=== PATIENT | male | born 1950 | race Caucasian/White ===

== ENCOUNTER 2019-09-26 11:29 | Inpatient (IN) | payer MEDICARE ==
[~2019-09-26] VITALS: Ht 180.3 cm; Wt 78.6 kg
--- NOTE | ~2019-09-26 | CON ---
[place], [place] REPORT OF CONSULTATION NAME: Hira RYAN UNIT #: [id number] ROOM: 531 DOCTOR: BRAD YU MD BIRTHDATE: [birth year] DOS: 09/27/2019 REASON FOR CONSULTATION: Elevated troponin. HISTORY OF PRESENT ILLNESS: The patient is a 69-year-old gentleman with history of coronary artery disease, recent bypass surgery, peripheral vascular disease, who was brought to the Emergency Room after a fall. Apparently, the patient fell at home, but denies any loss of consciousness, but he was on the floor about 3 days without any food. The patient has been calling around the basement, finally was brought to the Emergency Room and a Cardiology consult for elevated cardiac troponin. His admitting diagnosis is rhabdomyolysis. He had a bypass in February 2019 and compliant with his medications. Denies any chest pain, shortness of breath. No PND, no orthopnea, no palpitations, no fever and chills. No neurologic symptoms. No musculoskeletal symptoms except the patient has some scratches and wound in the legs from crawling. REVIEW OF SYSTEMS: Review of 10 systems negative except as described above. PAST MEDICAL HISTORY: 1. Coronary artery disease, status post bypass surgery. 2. Peripheral vascular disease. 3. Hypertension. 4. Diabetes type 2. PAST SURGICAL HISTORY: History of bypass surgery in February 2019. SOCIAL HISTORY: The patient quit smoking in February 2019. He does not use illicit drugs, does not drink. FAMILY HISTORY: Father , age unknown. Mother , age unknown. ALLERGIES: Reviewed. HOME MEDICATIONS: Reviewed. PHYSICAL EXAMINATION: VITAL SIGNS: Blood pressure 138/66, pulse 84, respiratory rate of 16, weight 78.5 kg, BMI 24. GENERAL: Alert, comfortable, in no acute distress. NECK: Supple, no distended neck veins, no carotid bruit. CHEST: Symmetrical, nontender. LUNGS: Clear to auscultation bilaterally. HEART: Regular rhythm, no S3, no palpable thrills. ABDOMEN: Nontender. Bowel sounds normal. EXTREMITIES: Showed no edema. Distal pulses palpable. The patient has abrasions over the legs as well as at the tip of the toes. NEUROLOGIC: Alert with no focal neurologic deficit. PSYCHIATRIC: Alert with good mood and affect. REVIEW OF THE DIAGNOSTIC TESTS: EKG shows sinus rhythm, left atrial [facility] [place], [place] REPORT OF CONSULTATION NAME: Hira RYAN UNIT #: [id number] ROOM: 531 DOCTOR: AIMEE SAUCEDO,BRAD BIRTHDATE: [birth year] enlargement, no acute ST-T changes. CBC, chemistry reviewed. Hemoglobin 8.7, potassium 3.7, BUN 77, creatinine 1.84. CPK was 3539. Troponins are 0.094, 0.082, 0.064, trending down. IMPRESSION: 1. Borderline elevation of troponin due to rhabdomyolysis. 2. Significant elevation of CPK due to rhabdomyolysis. 3. Acute renal failure. 4. Coronary artery disease, status post recent bypass in February 2019. 5. Hypertension. 6. Peripheral vascular disease. 7. Anemia. 8. Wounds of the legs. RECOMMENDATIONS: The patient denies any chest pain. His borderline elevation of troponin is likely from his rhabdomyolysis. Continue his current cardiac medications including Plavix and Coreg. Resume his Lipitor when his CPK is in the normal range. We will resume his lisinopril once his kidney functions are stable. No family at bedside at the time of examination. Compliance with medication discussed. Cardiology will see as needed during the weekend. No further cardiac testing at this time. BRAD YU MD CM:CONSTR:REPORT OF CONSULTATION 1349 09/28/19 9249 interface
--- NOTE | ~2019-09-26 | PR ---
[place], [place] PROGRESS NOTE NAME: Hira RYAN UNIT #: [id number] ROOM: 531 DOCTOR: CURT SAUCEDO,NOEMI He BIRTHDATE: [birth year] DOS: 09/29/2019 NEPHROLOGY FOLLOWUP NOTE SUBJECTIVE: The patient was seen and examined. He is awake and alert. He is on room air. He states he feels a little better every day. Denies any major complaints to me. PHYSICAL EXAMINATION: VITAL SIGNS: Temperature 98.3, pulse 79, respiratory rate 18, blood pressure 143/59. HEENT: Shows no JVD. LUNGS: Diminished breath sounds. No wheeze. HEART: S1, S2. No rub. ABDOMEN: Soft, nontender. EXTREMITIES: Showed trace edema. LABORATORY DATA: Hemoglobin 8.3, white count 5.2, platelets 137. Sodium is 137, potassium 4.1, CO2 of 27, BUN 62, creatinine 1.27, glucose 189, calcium 8.0, magnesium 2.3, albumin 2.2. ASSESSMENT AND PLAN: 1. Acute kidney injury. This appears to be improving. Suspect likely related to prerenal factors, possible acute tubular necrosis. BUN remains high. Creatinine is stable. Replace electrolytes as needed. Fluids seemed to have been stopped. 2. Rhabdomyolysis. Overall, CK levels have improved. Would consider checking a CK level again. 3. Diabetes mellitus, on insulin. Continue to monitor. 4. Anemia. Continue to monitor. Transfuse as needed. NOEMI ELIAS MD CM:PNTRANS [id number] NOEMI ELIAS MD 09/29/19 2007 interface
--- NOTE | ~2019-09-26 | CON ---
[place], [place] REPORT OF CONSULTATION NAME: Hira RYAN UNIT #: [id number] ROOM: 531 DOCTOR: KEYLA PHD AMIRA BIRTHDATE: [birth year] DOS: 10/03/2019 HISTORY OF PRESENT ILLNESS: The patient is a 69-year-old male referred by the hospitalist for Behavioral Health evaluation. At the present time, the patient is on the 5th floor at [facility]. He initially presented to the ED with leg pain. He lives alone and has a friend, who cares for him as well as a home health nurse. Three days prior to his admission on the , he lost his balance and fell. He was not able to get up off the floor and was down for 3 days. His partner of 22 years 3 years ago. He also lost his mom that same year, which he states is when his depression started. He worked for [employer]. He denied alcohol and illegal drug use. He quit smoking tobacco in February of this year after his heart attack. PAST MEDICAL HISTORY: Coronary artery disease, type 2 diabetes, peripheral artery disease, stenosis of lower extremity artery. MEDICATIONS: Lantus, torsemide, Zofran, Humalog, vitamin D, Zoloft, Plavix, Lovenox, Protonix, Coreg, Silvadene, Percocet, Roxicodone. The patient was sitting comfortably, in no apparent distress. He was awake, alert and oriented to person, place and generally to time. He can name the president. Mood was depressed and affect was restricted in range. He states that he feels purposeless in life after his partner . He states that if he never woke up, "he would be happy," however, he firmly and convincingly denied intent to kill himself. He states that he is "to check-in" to end his life. He was able to contract for safety. He states that he does have firearms at home and these should be removed prior to him returning home. He states that if he were to harm himself he would overdose on his medications. Other stressors include recent health issues and adjustment to disability. He is motivated for treatment and is hopeful that his friend will move in with him when he eventually returns home. His plan is to get a [facility] to work on rehabilitation. Discussed inpatient psychiatric treatment with the patient. He reiterated that he is not intending to harm himself and is not at risk for suicide. Speech and language were within normal limits conversationally. Thought process is linear and goal directed. There is no evidence of hallucinations or delusions. DIAGNOSIS: Major depressive disorder, recurrent, severe. PLAN: The patient experiences passive suicidal ideation and at times feels like he wants to . However, he firmly and convincingly denied intention to harm himself. He was able to contract for safety. He declined inpatient psychiatric treatment, but is open to outpatient treatment. He does not appear to be in imminent risk to himself, his firearm should be removed from his home prior to him returning, he would benefit from safety planning as well. He will be discharged to [facility]. Thank you very much for this consult. [place], [place] REPORT OF CONSULTATION NAME: Hira RYAN UNIT #: [id number] ROOM: 531 DOCTOR: KEYLA, PHD AMIRA BIRTHDATE: [birth year] Pita Marrero, PhD CM:CONSTR:REPORT OF CONSULTATION 1701 10/04/19 0427 interface
--- NOTE | ~2019-09-26 | PR ---
[place], [place] PROGRESS NOTE [id number] UNIT #: [id number] ROOM: 531 DOCTOR: WINSOME DUNLAP DO BIRTHDATE: [birth year] DOS: 09/30/2019 RENAL PROGRESS NOTE SUBJECTIVE: The patient offers no complaints today. He states he is feeling well. Only concern is that he has retaining fluid. He denies orthopnea, PND, dyspnea, chest pain or palpitations. States he is voiding well, eating well. PHYSICAL EXAMINATION: VITAL SIGNS: Blood pressure 120/54, pulse 73, respiratory rate 20, temperature 97 degrees Fahrenheit. GENERAL APPEARANCE: A well-appearing male, awake, alert, oriented x 3, in no apparent distress. HEENT: There is no JVD appreciated. LUNGS: Clear to auscultation and percussion. CARDIOVASCULAR: Regular without S3 or rub appreciated. ABDOMEN: Soft with positive bowel sounds x 4. EXTREMITIES: No clubbing, cyanosis. He has +2 pretibial and pedal edema noted. He also has trace presacral edema noted. LABORATORY DATA: Today, WBC is 5.0, hemoglobin 8.3, hematocrit 26.5, platelets 239,000. Sodium is 134, potassium 4.4, chloride is 102, CO2 of 28, BUN of 57, creatinine 1.37, glucose is 295, calcium is 8.1, albumin of 2.1, corrected calcium is 9.6, total protein is 5.9. ASSESSMENT AND PLAN: 1. Acute kidney injury, baseline renal function is unclear. His renal function is improved from admission. Overall stable past 48 hours, slightly increased today. Again, baseline is unclear. Electrolytes are satisfactory. He appears to be volume overloaded. Intake and output yesterday suggest positive balance. Unclear if full output was recorded; however, he apparently is on a diuretic at home as medication reconciliation suggests torsemide 10 mg b.i.d., but he reports only taking a medication 3 times weekly and he is unsure what the name was. 2. Rhabdomyolysis. CK levels have normalized, volume 188 noted today. He is off IV fluids. 3. Anemia. Hemoglobin and hematocrit are decreased but stable. 4. Hypertension. Blood pressure is under satisfactory control. RECOMMENDATIONS: Continue to follow intake and output as well as renal function and electrolytes. I would suggest resuming his outpatient dose of diuretics, but these do need to be further clarified. [place], [place] PROGRESS NOTE NAME: Hira RYAN UNIT #: [id number] ROOM: 531 DOCTOR: WINSOME DUNLAP DO BIRTHDATE: [birth year] WINSOME DUNLAP DO CM:ZOILA 3 [id number] WINSOME DUNLAP DO 09/30/19 2146 interface
--- NOTE | ~2019-09-26 | PR ---
[place], [place] PROGRESS NOTE NAME: Hira RYAN UNIT #: [id number] ROOM: 531 DOCTOR: CURT SAUCEDO,NOEMI He BIRTHDATE: [birth year] DOS: 09/28/2019 NEPHROLOGY FOLLOWUP NOTE SUBJECTIVE: The patient was seen and examined. He is awake and alert. He states he still feels sore, but does feel better. He denies fevers, chills or night sweats. Denies shortness of breath. He was on room air. PHYSICAL EXAMINATION: VITAL SIGNS: Temperature afebrile, pulse 75, respiratory rate 20, blood pressure 122/53. HEENT: Shows no JVD. LUNGS: Clear. HEART: S1, S2. No rub. ABDOMEN: Soft, nontender. EXTREMITIES: Wrapped with trace edema. SKIN: Showed no rash. LABORATORY DATA: Glucose 188, BUN 67, creatinine 1.25, sodium 135, potassium 4.2, CO2 of 25, magnesium 2.2, albumin 2.1. ASSESSMENT AND PLAN: 1. Acute kidney injury. This has been improving. Suspect prerenal factors, possible acute tubular necrosis. BUN and creatinine are improving. Replace electrolytes as needed. Fluids to continue for now. 2. Rhabdomyolysis. CK levels have improved. He is on a bicarbonate infusion. Recheck CK level tomorrow. I think at this point, Bicarbonate can be stopped and he can be placed on normal saline. 3. Diabetes mellitus, on insulin. 4. Anemia. The patient's hemoglobin is 8.7. Transfuse as needed. NOEMI ELIAS MD CM:PNTRANS [id number] NOEMI ELIAS MD 09/29/19 0507 interface
--- NOTE | ~2019-09-26 | EKG ---
[place], [place] ELECTROCARDIOGRAM REPORT NAME: Hira RYAN UNIT #: [id number] ROOM: 531 DOCTOR: KT DRAFT REPORT BIRTHDATE: [birth year] [facility] Test Date: 2019-09-26 Test Time: 16:26:47 Pat Name: Hira RYAN Department: Room: 531 1 Gender: M Classifications Officer Cc/Cm: : 1950 Requested By: JAYDEN AMEZCUA Order Number: [id number] Reading MD: Vaishnavi Constantino Measurements Intervals [place] Rate: 89 P: 45 VA: 128 QRS: 21 QRSD: 95 T: 80 QT: 415 QTc: 505 Interpretive Statements Sinus rhythm Left atrial enlargement Prolonged QT interval Electronically Signed On 09-27-2019 7:42:37 PST by Vaishnavi Constantino CM:EKGRPT:ELECTROCARDIOGRAM REPORT 1626 0742 AJYDEN MERAZ DRAFT REPORT JAYDEN AMEZCUA
[2019-09-26 11:43] VITALS: BP 133/58
[2019-09-26 11:55] LABS: BASO % 0.3 % (0.0-1.0); EOS % 0.1 % (1.0-4.0); HEMATOCRIT 29.8 % (42.0-52.0); HEMOGLOBIN 9.5 g/dl (14.0-18.0); LYMPH # 0.6 10*3/uL (1.3-4.4); LYMPH % 6.7 % (27.0-41.0); MEAN CORPUSCULAR HGB 28.4 pg (27.0-31.0); MEAN CORPUSCULAR HGB CONC 31.9 g/dl (33.0-37.0); MEAN PLATELET VOLUME 10.5 fl (9.6-12.3); NEUT # 7.7 10*3/uL (2.3-7.9); NEUT % 81.3 % (47.0-73.0); PLATELET COUNT AUTOMATED 162 10*3/uL (130-400); RED BLOOD COUNT 3.35 10*6/uL (4.50-5.90); RED CELL DISTRI WIDTH 15.9 % (0-14.5); WHITE BLOOD COUNT 9.5 10*3/uL (4.8-10.8)
[2019-09-26 12:05] LABS: ACT PARTIAL THROMBO TIME 28.2 SECONDS (20.0-32.1)
--- NOTE | 2019-09-26 12:07 | NUR ---
PT HAS A HOME HEALTH NURSE WHO WENT TO SEE THE PT SOMETIME WITHIN THE PAST X3 DAYS. HOME NURSE WAS UNABLE TO SEE THE PT AND INSTEAD LEFT A NOTE THAT READ "I WAS HERE YELLED FOR YOU DOWN THE STAIRS TOWARD BASEMENT YOUR DOG WAS OUT AND I SEEN YOUR WALKER BUT YOU DIDN'T ANSWER- I ALSO CALLED AND LEFT A MESSAGE. I GUESS I'LL SEE YOU TOMORROW -[place]."
[2019-09-26 12:13] LABS: ALBUMIN 2.5 gm/dl (3.1-4.5); CREATININE 1.56 mg/dL (0.70-1.30); POTASSIUM 4.4 mmol/L (3.5-5.1); TOTAL PROTEIN 6.2 gm/dL (6.4-8.2)
[2019-09-26 12:39] LABS: TROPONIN I 0.091 ng/ml (<0.045)
--- NOTE | 2019-09-26 13:06 | NUR ---
NOTIFIE D DR AMEZCUA OF CRITICAL TROPONIN CALLED TO ME BY LAB OF 0.082.TROPONIN TRENDING DOWN.
--- NOTE | 2019-09-26 14:00 | NUR ---
PT RESTING IN BED EATING.
[2019-09-26 14:30] VITALS: BP 122/59
[2019-09-26] MEDS ORDERED: TORSEMIDE10 MG PO (14:48)
[2019-09-26] MEDS ORDERED: CLOPIDOGREL75 MG PO (14:48)
[2019-09-26] MEDS ORDERED: ALPRAZOLAM0.5 M3 PO (14:49)
[2019-09-26] MEDS ORDERED: LISINOPRIL10 M1 PO (14:50)
[2019-09-26] MEDS ORDERED: PERCOCET 10-321 EACH PO (14:50)
[2019-09-26] MEDS ORDERED: CARVEDILOL3.125 MG PO (14:50)
[2019-09-26] MEDS ORDERED: PANTOPRAZOLE SO40 MG PO (14:58)
[2019-09-26] MEDS ORDERED: ATORVASTATIN CA80 M1 PO (14:59)
[2019-09-26] MEDS ORDERED: SERTRALINE HYDR50 MG PO (14:59)
--- NOTE | 2019-09-26 15:00 | NUR ---
HOME MEDS RECONCILED WITH [facility] PHARMACIST IN [place] PRIOR TO PT ARRIVAL TO FLOOR.
[2019-09-26 15:10] VITALS: BP 106/55
--- NOTE | 2019-09-26 15:10 | NUR ---
A 69, admitted to 5E, under the services of SIMRAN Hdez DO with a diagnosis of RHABDOMYLOSIS,HYPERNATREMIA,AND TRANSAMINITIS. Chief complaint is SCATTERED MULTIPLE WOUNDS FROM FALL 3 DAYS AGO, UNOTICED. PT WAS ON FLOOR IN BASEMENT CRAWLING, UNABLE TO GET UP OR CALL FOR HELP. Patient arrived via bed from ER. Monitor applied. Initial assessment completed. Vital signs taken and recorded. SIMRAN HDEZ DO notified of admission to the unit. Orders received. See assessment for past medical history, medications and allergies. Patient and/or family oriented to unit. [facility] visitation policy reviewed. Clothing/patient valuable form completed. ROSSI OLMOS
--- NOTE | 2019-09-26 15:13 | NUR ---
DR OWENS IN TO SEE PT FOR HEEL WOUND FOR PODIATRY. ORDERS RECIEVED.
--- NOTE | 2019-09-26 15:15 | NUR ---
MEASUREMENTS TO 14 WOUNDS COMPLETED PER POLICY, SEE WOUND ASSESSMENT SCREEN.
--- NOTE | 2019-09-26 15:20 | NUR ---
PT TRANSPORTED VIA BED TO US FOR VENOUS /ARTERIAL ULTRASOUND OF BLE.
--- NOTE | 2019-09-26 15:53 | NUR ---
NOTIFIED [facility] OF NEW CONSULT FOR RHABDO AND ELEVATED TROPONINS.
--- NOTE | 2019-09-26 15:59 | NUR ---
DR ALEXANDER'S OFFICE NOTIFIED OF NEW CONSULT FOR RHABDOMYLOSIS.
[2019-09-26 16:00] VITALS: BP 106/55
--- NOTE | 2019-09-26 17:18 | NUR ---
NOTIFIED DR AMEZCUA OF CRITICAL TROPONIN OF 0.064. NO NEW ORDERS.
--- NOTE | 2019-09-26 17:20 | NUR ---
ORDERS RECIEVED FROM DR ALEXANDER.
[2019-09-26 19:15] LABS: CREATININE 1.83 mg/dL (0.70-1.30); POTASSIUM 4.1 mmol/L (3.5-5.1)
[2019-09-26 19:24] LABS: BILIRUBIN 1+ (NEGATIVE); BLOOD 3+ (NEGATIVE); CLARITY SL CLOUDY (CLEAR); COLOR YELLOW (YELLOW); GLUCOSE NEGATIVE (NEGATIVE); KETONE TRACE (NEGATIVE); LEUKO ESTERASE NEGATIVE (NEGATIVE); NITRITE NEGATIVE (NEGATIVE); PH 5.5 (5.0-9.0); SPECIFIC GRAVITY >= 1.030 (1.005-1.030); UROBILINOGEN 0.2 E.U./dl (0.2-1.0)
[2019-09-26 19:30] LABS: EPITHELIAL CELLS 0-2; WBC 0-2 wbc/hpf (0-5); YEAST 1+
--- NOTE | 2019-09-26 19:30 | NUR ---
BEDSIDE REPORT RECEIVED ON PT. PT ALERT ORIENTED, LYINIG IN BED AT THIS TIME. RESPIRATIONS EASY AND UNLABORED ON ROOM AIR. PT DENIES NEEDING ANYTHING AT THIS TIME. SAFETY MEASURES IN PLACE, CALL LIGHT IN REACH.
[2019-09-26 20:00] VITALS: BP 106/52
--- NOTE | 2019-09-26 20:00 | NUR ---
PT SLEEPING IN BED, RESPIRATIONS EASY AND UNLABORED. CALL LIGHT IN REACH.
--- NOTE | 2019-09-26 20:23 | NUR ---
PT HOME MEDICATIONS GIVEN TO TELECINE OPERATOR TO TAKE DOWN TO PHARMACY PER POLICY.
[2019-09-26 21:38] VITALS: BP 112/64
--- NOTE | 2019-09-26 23:30 | NUR ---
PT GIVEN NORCO PER PRN MEDICATIONS ON EMAR FOR C/O GENERALIZED MUSCLE ACHES. WILL MONITOR FOR EFFECTIVENESS. PT LYING IN BED. HOB ELEVATED. RESPIRATIONS EASY AND UNLABORED ON ROOM AIR. CALL LIGHT IN REACH.
[2019-09-27] VITALS: BP 113/50
--- NOTE | 2019-09-27 00:30 | NUR ---
NICOLAS EFFECTIVE PER PT.
--- NOTE | 2019-09-27 04:40 | NUR ---
PT GIVEN NORCO AT THIS TIME FOR GENERALIZED MUSCLE ACHES/PAINS. WILL MONITOR FOR EFFECTIVENESS. PT AWAKE, ALERT, ORIENTED AT THIS TIME. PT DENIES SHORTNESS OF BREATH. IV SITE TO RIGHT ARM PATENT AND IN TACT. FLUSHING WITH EASE. WILL MONITOR FOR EFFECTIVENESS OF PAIN MEDICATION. CALL LIGHT IN REACH.
--- NOTE | 2019-09-27 05:40 | NUR ---
NORCO EFFECTIVE AT THIS TIME.
[2019-09-27 05:59] LABS: BASO % 0.3 % (0.0-1.0); EOS # 0.2 10*3/uL (0.0-0.4); EOS % 2.7 % (1.0-4.0); HEMATOCRIT 27.4 % (42.0-52.0); HEMOGLOBIN 8.7 g/dl (14.0-18.0); LYMPH # 0.6 10*3/uL (1.3-4.4); MEAN CORPUSCULAR HGB 27.6 pg (27.0-31.0); MEAN CORPUSCULAR HGB CONC 31.8 g/dl (33.0-37.0); MEAN PLATELET VOLUME 11.7 fl (9.6-12.3); MONO # 0.8 10*3/uL (0.1-1.0); MONO % 11.7 % (3.0-9.0); NEUT # 5.5 10*3/uL (2.3-7.9); NEUT % 76.2 % (47.0-73.0); PLATELET COUNT AUTOMATED 152 10*3/uL (130-400); RED BLOOD COUNT 3.15 10*6/uL (4.50-5.90); RED CELL DISTRI WIDTH 15.7 % (0-14.5); WHITE BLOOD COUNT 7.2 10*3/uL (4.8-10.8)
[2019-09-27 06:18] LABS: ALBUMIN 2.1 gm/dl (3.1-4.5); CREATININE 1.84 mg/dL (0.70-1.30); PHOSPHOROUS 4.1 mg/dL (2.5-4.9); POTASSIUM 3.8 mmol/L (3.5-5.1); TOTAL PROTEIN 5.6 gm/dL (6.4-8.2)
[2019-09-27 06:30] LABS: THYROID STIM HORMONE (HS) 1.34 uIU/ml (0.358-4.75)
[2019-09-27 06:51] LABS: INTERNATIONAL NORM RATIO 0.9 (2.0-3.5)
--- NOTE | 2019-09-27 07:18 | NUR ---
Hira RYAN [id number] Please refer to the physician's history and physical for past medical history, comorbid conditions, and allergies. Diagnosis: TRANSAMINITIS HYPERNATREMIA RHABDOMYOLYSIS Onur Score: 19,LOW OR NO RISK WOUND DESCRIPTIONS: Wound Number: 1 Location of the wound: right lower leg Thickness: Full Size: 24.0cm x 9.0cm x 0.1cm Tunneling: none Undermining: none Sinus Tract: none Presence of Exudate: Serosanguineous Amount: Light Color: Red, yellow, brown Odor: None Periwound Skin Appearance: Erythema Wound edges: approximated with serum filled blisters Pain (associated with wound): tender to touch How does patient state this happened? pt stated this is all from him crawling around on the floor for several days Wound Number: 2 Location of the wound: right heel Type of Wound: unstageable Thickness: Full Size: 6.0cm x 5.8cm x 0.1cm Tunneling: none Undermining: none Sinus Tract: none Presence of Exudate: Serosanguineous Amount: Light Color: Red, yellow, black Odor: None Periwound Skin Appearance: Erythema Wound edges: approximated Pain (associated with wound): tender to touch How does patient state this happened? pt stated he had this for a little while and have been following in the wound care center Wound Number: 3 Location of the wound: right great toe Type of Wound: DTI Size: 0.6cm x 1.0cm x 0.1cm Tunneling: none Undermining: none Sinus Tract: none Presence of Exudate: none Amount: none Color: dark red, purple Odor: None Periwound Skin Appearance: Erythema Wound edges: closed Pain (associated with wound): tender to touch How does patient state this happened? pt stated this is all from him crawling around on the floor for several days Wound Number: 4 Location of the wound: right lower leg Thickness: Full Size: 27.0cm x 11.0cm x 0.1cm Tunneling: none Undermining: none Sinus Tract: none Presence of Exudate: Serosanguineous Amount: Light Color: Red, yellow, brown Odor: None Periwound Skin Appearance: Erythema Wound edges: approximated with serum filled blisters Pain (associated with wound): tender to touch How does patient state this happened? pt stated this is all from him crawling around on the floor for several days Wound Number: 5 Location of the wound: right elbow Thickness: Full Size: 6.0cm x 6.0cm x 0.1cm Tunneling: none Undermining: none Sinus Tract: none Presence of Exudate: none Amount: none Color: Red, brown, yellow Odor: None Periwound Skin Appearance: Erythema Wound edges: approximated Pain (associated with wound): tender to touch How does patient state this happened? pt stated this is all from him crawling around on the floor for several days Wound Number: 6 Location of the wound: left elbow Thickness: Full Size: 7.5cm x 9.0cm x 0.1cm Tunneling: none Undermining: none Sinus Tract: none Presence of Exudate: none Amount: none Color: Red, brown, yellow Odor: None Periwound Skin Appearance: Erythema Wound edges: approximated Pain (associated with wound): tender to touch How does patient state this happened? pt stated this is all from him crawling around on the floor for several days Wound Number: 7 Location of the wound: right forearm Thickness: Full Size: 5.2cm x 1.0cm x 0.1cm Tunneling: none Undermining: none Sinus Tract: none Presence of Exudate: none Amount: none Color: Red, brown Odor: None Periwound Skin Appearance: Erythema Wound edges: approximated with serum filled blisters Pain (associated with wound): tender to touch How does patient state this happened? pt stated this is all from him crawling around on the floor for several days Wound Number: 8 Location of the wound: left great toe distal Type of Wound: DTI Size: 0.5cm x 1.3cm x <0.1cm Tunneling: none Undermining: none Sinus Tract: none Presence of Exudate: none Amount: none Color: dark red, purple Odor: None Periwound Skin Appearance: Erythema Wound edges: closed Pain (associated with wound): tender to touch How does patient state this happened? pt stated this is all from him crawling around on the floor for several days Wound Number: 9 Location of the wound: left forearm Thickness: Full Size: 3.8cm x 1.5cm x 0.1cm Tunneling: none Undermining: none Sinus Tract: none Presence of Exudate: none Amount: none Color: Red, brown Odor: None Periwound Skin Appearance: Erythema Wound edges: approximated Pain (associated with wound): tender to touch How does patient state this happened? pt stated this is all from him crawling around on the floor for several days Wound Number: 10 Location of the wound: right knee Thickness: Full Size: 15.0cm x 14.0cm x 0.1cm Tunneling: none Undermining: none Sinus Tract: none Presence of Exudate: Serosanguineous Amount: Light Color: Red, yellow, brown Odor: None Periwound Skin Appearance: Erythema Wound edges: approximated Pain (associated with wound): tender to touch How does patient state this happened? pt stated this is all from him crawling around on the floor for several days Wound Number: 11 Location of the wound: left knee Thickness: Full Size: 11.0cm x 18.0cm x 0.1cm Tunneling: none Undermining: none Sinus Tract: none Presence of Exudate: Serosanguineous Amount: Light Color: Red, yellow, brown Odor: None Periwound Skin Appearance: Erythema Wound edges: approximated Pain (associated with wound): tender to touch How does patient state this happened? pt stated this is all from him crawling around on the floor for several days Wound Number: 12 Location of the wound: left great toe distal aspect Thickness: Full Size: 1.5cm x 1.2cm x 0.1cm Tunneling: none Undermining: none Sinus Tract: none Presence of Exudate: none Amount: none Color: Red, brown Odor: None Periwound Skin Appearance: Erythema Wound edges: approximated Pain (associated with wound): tender to touch How does patient state this happened? pt stated this is all from him crawling around on the floor for several days Surface the patient is resting on: Isoflex SKIN PREVENTION RECOMMENDATION: 1. Pressure redistribution support surface as appropriate 2. Elevate heels 3. Remove boots/TEDS every shift and reapply 4. Head of bed 30 degrees as tolerated 5. Assess nutrition and hydration 6. Manage moisture 7. Avoid the use of containment devices while in bed 8. Use absorptive products on surfaces limit layers of linens on bed 9. Turn and reposition every 1-2 hours in bed and every 1 hour in chair as tolerated 10. Weight shifts every 15 minutes while up in chair 11. Offloading with pillows or device to keep heels elevated off bed 12. Monitor skin at least every shift 13. Inspect under medical devices twice a day WOUND TREATMENT RECOMMENDATIONS: Patient is requesting to follow up with Dr. Sherman while inpatient since he follows with him in the wound care center patient doesn't want to continue to follow with podiatry. Heel raiser pro boots while in bed to bilateral lower extremites Unstageable guidelines: Cleanse left heel with normal saline. Apply sureprep around the wound therahoney to wound bed cover with , 4x4, abd, kerlix. Change daily and as needed. Cleanse right lower leg, left lower leg, right knee and left knee with nss and apply silvadene BID and cover with adaptic then abd pad and lightly wrap in kerlix daily and prn for soiling. DTI guidelines: Apply sureprep to right great toe and left distal great toe and left proximal great toe allow time to dry then cover with bandaid daily. Cleanse right elbow, left elbow, right forearm and left forearm with nss and apply therahoney and cover with dsd daily and prn for soiling.
[2019-09-27 08:00] VITALS: BP 138/66
--- NOTE | 2019-09-27 08:02 | NUR ---
Dr. Marrero notified of wound care recommendations.
--- NOTE | 2019-09-27 10:14 | NUR ---
DR ALMEIDA NOTIFIED OF NEW CONSULT FOR MULTIPLE BLE WOUNDS.
--- NOTE | 2019-09-27 11:56 | NUR ---
dr cardoza rounded and seen pt.
[2019-09-27 12:00] VITALS: BP 143/67
--- NOTE | 2019-09-27 13:01 | NUR ---
DRESSING CHANGE TO BLE COMPLETED PER PHYSICIAN ORDER. PT TOLERATED WELL.
--- NOTE | 2019-09-27 13:33 | NUR ---
Test Manager in to talk to patient. Patient states lives at HOME with ALONE. There are FEW steps in the home. Physician: MICHELLE [facility]: HAS A NURSE BUT DOES NOT WANT HER TO COME BACK, STATES HE THINKS IT WAS FROM [facility]. STATES SHE WAS LAZY AND HE DOES NOT WANT HER TO RETURN Patient's level of ADLs: MODERATE ASSIST Patient has working utilities: YES DME: [employer] Follow-up physician's appointment after d/c: WILL BE MADE BY HOSPITALIST NURSE DIRECTOR ON DISCHARGE Does patient want to access PORTAL?: NO Discharge plan PT LIVES AT HOME ALONE, SEE ABOVE NOT ABOUT HOME HEALTH. STATES HE HAS MALIK WHO HELPS HIM AND TAKES HIM TO HIS APPOINTMENTS. TALKED TO PT ABOUT SKILLED STAY AND HE STATES HE WOULD LIKE TO GO HOME BUT IS NOT OPPOSED TO GOING BACK TO [place], HE WAS THERE IN MAY. STATES IT IS OK TO START A REFERRAL AND SEE HOW HE PROGRESSES HERE. WILL CONTINUE TO FOLLOW. WILL HAVE A RIDE IF HE GOES HOME.. ELLIE CHRISTIANSEN
--- NOTE | 2019-09-27 14:15 | NUR ---
DR AMEZCUA NOTIFIED OF CRITICAL GLUCOSE
--- NOTE | 2019-09-27 14:27 | NUR ---
PHYSICAL THERAPY Physical therapy jennifer completed moderate level of activity-[id number] PT will work on transfers, gait with use of AD, ther ex/ROM and strengthening. Recommend SNF at discharge. Thank you Lacey Cochran PT
--- NOTE | 2019-09-27 15:32 | NUR ---
IV started right forearm with #22 protective cath after 1 attempts. Site prepped with Chloroprep. Sterile dressing applied. Patient tolerated procedure well. IV infusing at 100 cc/hr. ROSSI OLMOS
--- NOTE | 2019-09-27 15:36 | NUR ---
Rosanna from [facility] stopped into see the patient. Patient has a balance with their facility. Patient would need to sign a promise to pay before they will accept him. Patient has refused. Rsoanna is contacting her adminstrator to see if the patient would still be able to be accepted with out signing the promise to pay. -SHANKAR Love
[2019-09-27 16:00] VITALS: BP 131/59
--- NOTE | 2019-09-27 16:30 | NUR ---
NOTIFIED DR AMEZCUA OF BLOOD GLUCOSE OF 467.NO NEW ORDERS PER DR AMEZCUA. 14 UNITS GIVEN PER JAN.
--- NOTE | 2019-09-27 17:14 | NUR ---
PT MEDICATED FOR PAIN, SEE MAR.
[2019-09-27 20:00] VITALS: BP 102/50
[2019-09-27 20:44] VITALS: BP 110/72
--- NOTE | 2019-09-27 20:59 | NUR ---
PT GIVEN 2 MG MORPHINE VIA IV AT THIS TIME FOR C/O GENERALIZED PAIN ALL OVER BODY. PT RATES PAIN 10/10. PT PO PAIN MEDICATION IS NOT DUE AT THIS TIME. PT AGREES TO TRY MORPHINE. ALL OTHER HS MEDICAITONS GIVEN AT THIS TIME. 3 UNITS INSULIN GIVEN FOR A BLOOD SUGAR OF 237. PT SITTING UP IN BED, WATCHING TELEVISION. PT BLOOD PRESSURE WNL. NO OTHER NEEDS AT THIS TIME ARE VOICED BY PT. ALL DRESSINGS TO WOUNDS ARE C/D/I. SAFETY MEASURES ARE IN PLACE. CALL LIGHT IN REACH, VERBALIZES USE OF CALL LIGHT.
--- NOTE | 2019-09-27 21:59 | NUR ---
PT STATES THAT MORPHINE IS EFFECTIVE AT THIS TIME. WILL CONTINUE TO MONITOR. PT LYING IN BED, WATCHING TELEVISION. ALL SAFETY MEASURES IN PLACE. CALL LIGHT IN REACH.
--- NOTE | 2019-09-27 23:15 | NUR ---
PT GIVEN PERCOCET WITH OXYCODONE 5 MG TO EQUAL PERCOCET 10-325 MG AT THIS TIME DUE TO PAIN BUTTOCKS AND BILATERAL LEGS. WILL MONITOR FOR EFFECTIVENESS. CALL LIGHT IN REACH.
[2019-09-28] VITALS: BP 121/54
--- NOTE | 2019-09-28 00:15 | NUR ---
PERCOCET EFFECTIVE PER PT.
--- NOTE | 2019-09-28 03:23 | NUR ---
PT GIVEN MORPHINE FOR C/O PAIN TO BILATERAL LEGS, BACK, AND BUTTOCKS. PT RATES PAIN 9/10. WILL MONITOR FOR EFFECTIVENESS. ALL SAFETY MEASURES IN PLACE. CALL LIGHT IN REACH.
--- NOTE | 2019-09-28 04:23 | NUR ---
MORPHINE EFFECTIVE PER PT.
[2019-09-28 06:48] LABS: BASO % 0.5 % (0.0-1.0); EOS # 0.3 10*3/uL (0.0-0.4); EOS % 3.9 % (1.0-4.0); HEMOGLOBIN 8.7 g/dl (14.0-18.0); LYMPH # 0.9 10*3/uL (1.3-4.4); LYMPH % 14.6 % (27.0-41.0); MEAN CELL VOLUME 87.9 fl (80.0-94.0); MEAN CORPUSCULAR HGB 28.3 pg (27.0-31.0); MEAN CORPUSCULAR HGB CONC 32.2 g/dl (33.0-37.0); MEAN PLATELET VOLUME 11.9 fl (9.6-12.3); MONO % 15.1 % (3.0-9.0); NEUT # 4.1 10*3/uL (2.3-7.9); NEUT % 65.1 % (47.0-73.0); PLATELET COUNT AUTOMATED 152 10*3/uL (130-400); RED BLOOD COUNT 3.07 10*6/uL (4.50-5.90); RED CELL DISTRI WIDTH 15.6 % (0-14.5); WHITE BLOOD COUNT 6.4 10*3/uL (4.8-10.8)
[2019-09-28 07:03] LABS: ALBUMIN 2.1 gm/dl (3.1-4.5); ALKALINE PHOSPHATASE 77 U/L (45-117); CHLORIDE 105 mmol/L (98-107); CREATININE 1.25 mg/dL (0.70-1.30); POTASSIUM 4.2 mmol/L (3.5-5.1); SGOT/AST 81 IU/L (3-35); SODIUM 135 mmol/L (136-145); TOTAL PROTEIN 5.8 gm/dL (6.4-8.2)
[2019-09-28 07:04] LABS: SGPT/ALT 90 U/L (12-78)
[2019-09-28 07:06] LABS: BUN 67 mg/dl (7-24)
--- NOTE | 2019-09-28 07:46 | NUR ---
MEDICATED WITH PRN MORPHINE FOR C/O LEG PAIN.
[2019-09-28 08:00] VITALS: BP 120/54
--- NOTE | 2019-09-28 08:54 | NUR ---
MORPHINE EARLIER HELPED.
--- NOTE | 2019-09-28 09:31 | NUR ---
MEDICATED WITH PRN ZOFRAN PER ORDER AND REQUEST.
[2019-09-28 12:00] VITALS: BP 107/51
--- NOTE | 2019-09-28 12:01 | NUR ---
MEDICATED WITH OXYCODONE AND PERCOCET AND PER ORDERS AND REQUEST FRO C/O LEG/BACK PAIN.
--- NOTE | 2019-09-28 12:24 | NUR ---
PHYSICAL THERAPY BOOTH OPERATOR attempted to see patient in AM-- patient reported increased nausea and asked BOOTH OPERATOR to come back at later time. Later in afternoon, patient attendant notified BOOTH OPERATOR that patient was up sitting on bed side commode. BOOTH OPERATOR assisted with transfer. Patient performed STS transfer bedside commode->FWW with minAx2 provided- patient tolerated static standing with completion of hygiene tasks, followed by SPT transfer with use of FWW and minAx1 plus CGA-SBA of second person for safety. Patient benefits from cues for safety with walker proximity/management and safety. Patient performed bed mobility: sit->supine requiring Allie-modA for LE management. Pt agreeable to perform supine B LE ther-ex once in bed, however, patient still reports nausea. Patient performed supine exercises for strength, endurance and function- for performance of gait, transfers and functional activities: quad sets with 5 sec holds, ankle PF/DF, SLR(with limited ROM), glute sets. Cues and supervision for technique and progression of exercises. Pt has no c/o this date. Pt supine in bed at session end with call light within reach. Magdalena Wiseman PTA
--- NOTE | 2019-09-28 15:41 | NUR ---
MEDICATED WITH PRN MORPHINE PER ORDER AND REQUEST FOR "ALL OVER" PAIN.
[2019-09-28 16:00] VITALS: BP 122/53
--- NOTE | 2019-09-28 17:21 | NUR ---
MEDICATED WITH OXY AND PERCOCET PER ORDERS AND REQUEST FOR PAIN LEGS/BACK/HANDS.
--- NOTE | 2019-09-28 18:15 | NUR ---
OXY AND PERCOCET HELPED.
--- NOTE | 2019-09-28 19:30 | NUR ---
TOOK OVER CARE OF PT AT THIS TIME. PT RESTING IN BED. RESPRIATIONS UNLABORED, NO S/S OF DISTRESS. NO COMPLAINTS VOICED AT THIS TIME. SAFETY MEASURES IN PLACE, CALL LIGHT IN REACH.
[2019-09-28 20:00] VITALS: BP 105/56
[2019-09-28 22:00] VITALS: BP 124/70
--- NOTE | 2019-09-28 22:04 | NUR ---
PT C/O PAIN TO BUTTOCKS/BACK/BILATERAL LEG PAIN. PERCOCET AND OXYCODONE 5 MG GIVEN PER PRN ORDERS ON EMAR. WILL MONITOR FOR EFFECTIVENESS. ASSESSMENT COMPLETE ON PT AT THIS TIME. BP WNL. ALL OTHER HS MEDICATIONS GIVEN AT THIS TIME. WILL MONITOR. CALL LIGHT IN REACH. SAFETY MEASURES IN PLACE.
--- NOTE | 2019-09-28 23:04 | NUR ---
PERCOCET AND OXYCODONE EFFECTIVE PER PT.
[2019-09-29] VITALS: BP 106/46
--- NOTE | 2019-09-29 00:51 | NUR ---
PT RESTING IN BED AT THIS TIME. RESPIRATIONS EASY AND UNLABORED WITH NO S/S DISTRESS. SAFETY MEASURES IN PLACE. CALL LIGHT IN REACH.
--- NOTE | 2019-09-29 06:29 | NUR ---
PT GIVEN MORPHINE AT THIS TIME FOR C/O PAIN TO BUTTOCKS/BACK/BILATERAL LEGS. WILL MONITOR FOR EFFECTIVENESS. NO OTHER COMPLAINTS VOICED AT THIS TIME. ALL SAFETY MEASURES IN PLACE. CALL LIGHT IN REACH.
[2019-09-29 06:56] LABS: BASO % 0.4 % (0.0-1.0); EOS # 0.1 10*3/uL (0.0-0.4); EOS % 1.7 % (1.0-4.0); HEMOGLOBIN 8.3 g/dl (14.0-18.0); LYMPH # 0.4 10*3/uL (1.3-4.4); LYMPH % 8.1 % (27.0-41.0); MEAN CORPUSCULAR HGB 28.4 pg (27.0-31.0); MEAN CORPUSCULAR HGB CONC 31.9 g/dl (33.0-37.0); MEAN PLATELET VOLUME 11.9 fl (9.6-12.3); MONO # 0.7 10*3/uL (0.1-1.0); MONO % 13.1 % (3.0-9.0); NEUT % 76.1 % (47.0-73.0); PLATELET COUNT AUTOMATED 137 10*3/uL (130-400); RED BLOOD COUNT 2.92 10*6/uL (4.50-5.90); RED CELL DISTRI WIDTH 15.3 % (0-14.5); WHITE BLOOD COUNT 5.2 10*3/uL (4.8-10.8)
[2019-09-29 07:11] LABS: ALBUMIN 2.2 gm/dl (3.1-4.5); ALKALINE PHOSPHATASE 75 U/L (45-117); BUN 62 mg/dl (7-24); CHLORIDE 106 mmol/L (98-107); CREATININE 1.27 mg/dL (0.70-1.30); POTASSIUM 4.1 mmol/L (3.5-5.1); SGOT/AST 44 IU/L (3-35); SGPT/ALT 69 U/L (12-78); SODIUM 137 mmol/L (136-145); TOTAL PROTEIN 5.7 gm/dL (6.4-8.2)
[2019-09-29 08:00] VITALS: BP 114/52
--- NOTE | 2019-09-29 09:08 | NUR ---
MEDICATED WITH PRN ZOFRAN PER ORDER AND REQUEST.
[2019-09-29 12:00] VITALS: BP 143/59
--- NOTE | 2019-09-29 15:53 | NUR ---
MEDICATED WITH PRN ROXYCODONE AND PERCOCET PER ORDERS AND REQUEST.
[2019-09-29 16:00] VITALS: BP 141/59
--- NOTE | 2019-09-29 17:00 | NUR ---
PAIN MEDICATION EARLIER HELPED.
--- NOTE | 2019-09-29 19:37 | NUR ---
MEDICATED WITH PRN OXI AND PERCOCET FOR C/O PAIN "ALL OVER" RATED 7/10 ON A 0/10 PAIN SCALE. WILL MONITOR
[2019-09-29 20:00] VITALS: BP 131/78
--- NOTE | 2019-09-29 23:53 | NUR ---
MEDICATED WITH PRN MORPHINE FOR C/O PAIN IN LEGS. WILL MONITOR
[2019-09-30] VITALS: BP 120/54
--- NOTE | 2019-09-30 03:28 | NUR ---
MEDICATED WITH PRN OXY AND PERCOCET FOR C/O ALL OVER PAIN RATED 9/10 ON A 0/10 PAIN SCALE
[2019-09-30 06:43] LABS: BASO % 0.4 % (0.0-1.0); EOS # 0.1 10*3/uL (0.0-0.4); EOS % 2.2 % (1.0-4.0); HEMATOCRIT 26.5 % (42.0-52.0); HEMOGLOBIN 8.3 g/dl (14.0-18.0); LYMPH # 0.7 10*3/uL (1.3-4.4); LYMPH % 13.3 % (27.0-41.0); MEAN CELL VOLUME 88.6 fl (80.0-94.0); MEAN CORPUSCULAR HGB 27.8 pg (27.0-31.0); MEAN CORPUSCULAR HGB CONC 31.3 g/dl (33.0-37.0); MEAN PLATELET VOLUME 11.6 fl (9.6-12.3); MONO # 0.8 10*3/uL (0.1-1.0); MONO % 15.1 % (3.0-9.0); NEUT # 3.4 10*3/uL (2.3-7.9); NEUT % 68.2 % (47.0-73.0); PLATELET COUNT AUTOMATED 139 10*3/uL (130-400); RED BLOOD COUNT 2.99 10*6/uL (4.50-5.90); RED CELL DISTRI WIDTH 14.9 % (0-14.5)
[2019-09-30 06:59] LABS: ALBUMIN 2.1 gm/dl (3.1-4.5); ALKALINE PHOSPHATASE 108 U/L (45-117); BUN 57 mg/dl (7-24); CHLORIDE 102 mmol/L (98-107); CPK 188 U/L (39-308); CREATININE 1.37 mg/dL (0.70-1.30); POTASSIUM 4.4 mmol/L (3.5-5.1); SGOT/AST 30 IU/L (3-35); SGPT/ALT 68 U/L (12-78); SODIUM 134 mmol/L (136-145); TOTAL PROTEIN 5.9 gm/dL (6.4-8.2)
--- NOTE | 2019-09-30 07:21 | NUR ---
MEDICATED WITH PRN OXY AND PERCOCET FOR C/O ALL OVER PAIN RATED 8/10 ON A 0/10 PAIN SCALE
--- NOTE | 2019-09-30 07:30 | NUR ---
Patient resting quietly with no c/o discomfort. Respirations easy and regular. Vital signs stable. No overt distress. DMITRY DINH
--- NOTE | 2019-09-30 07:35 | NUR ---
SHANKAR has a message out for [facility] to see if they are able to accept the patient. -SHANKAR Love
--- NOTE | 2019-09-30 07:58 | NUR ---
[facility] is unable to accept the patient at this time. Will need a new facility chosen. -SHANKAR Love
[2019-09-30 08:00] VITALS: BP 108/68
--- NOTE | 2019-09-30 08:11 | NUR ---
24 HR chart check completed.
--- NOTE | 2019-09-30 08:50 | NUR ---
Occupational Therapy evaluation completed on 5 with full eval to follow. Precautions include WBAT RLE w/ post op shoe, fall risk; bed alarm, walker use, wounds BLE and left elbow, moderate complexity level 99105. Recommend OT per pOC and SNF to enable return home alone. Thank you. Marisa Davis OTR/l
--- NOTE | 2019-09-30 08:59 | NUR ---
CERTIFIED DIETARY MANAGER spoke with the patient about not being able to go to [facility]. Patient stated he did not care where he was referred. CERTIFIED DIETARY MANAGER faxed new referral to [facility]. -SHANKAR Love
--- NOTE | 2019-09-30 09:25 | NUR ---
PHYSICAL THERAPY Patient seen this am 1:1 for therapy visit and was resting supine in bed upon therapist arrival. Patient identified by name / and presented with B heel protectors, including gauze leg wraps from ankles to top of Gastrocs. Patient reports chronic c/o mild pain but unable to rate on 0-10 scale and is to be WBAT with use of R LE surgical shoe. Patient has not received shoe yet and remained NWB on RLE this session, transfering supine to sit EOB with MIN A. Patient completed sit to stand transfer MIN A, use of std walker standing support and tolerated static stand x 4 minutes without c/o. Patient returned to supine in bed and reviewed supine ex prior to performing B LE therex, all planes, x 15 reps each to improve ROM / strength. Patient remained in bed with call light, tray table, cell phone and bed alarm for safety. Will continue per POC as tolerated, total treatment time 16 minutes. Abdullahi Orta, HAULAGE ENGINE OPERATOR
--- NOTE | 2019-09-30 10:15 | NUR ---
Veronica OBANDO notified of wound care recommendations.
--- NOTE | 2019-09-30 11:20 | NUR ---
MEDICATED WITH IV MORPHINE ORDERED PER PT REQUEST FOR C/O PAIN RATED 9/10 TO BLE.
[2019-09-30 12:00] VITALS: BP 142/55
--- NOTE | 2019-09-30 13:00 | NUR ---
MEDICATION EFFECTIVE FOR PAIN.
--- NOTE | 2019-09-30 13:19 | NUR ---
PT HAS NOW BEEN REFERRED TO THE MEDICAL CENTER. WILL CONTINUE TO FOLLOW.
--- NOTE | 2019-09-30 15:11 | NUR ---
MEDICATED WITH PO OXY, IV ZOFRAN AND MORPHINE ORDERED PER PT REQUEST FOR C/O NAUSEA AND PAIN.
[2019-09-30 16:00] VITALS: BP 134/58
--- NOTE | 2019-09-30 19:15 | NUR ---
DR BRADLEY AWARE OF PATIENT VOMITING AND ZOFRAN IS NOT AVAILABLE AT THIS TIME.
--- NOTE | 2019-09-30 19:54 | NUR ---
MEDICATED WITH PRN PHENERGAN VIA IV PUMP FOR N/V. WILL MONITOR
[2019-09-30 20:00] VITALS: BP 158/66
--- NOTE | 2019-09-30 20:57 | NUR ---
MEDICATED WITH PRN TYLENOL FOR TEMP OF 99.4. WILL MONITOR
--- NOTE | 2019-09-30 21:46 | NUR ---
PATIENT STATES NAUSEA HAS SUBSIDED "A LITTLE BIT"
[2019-10-01] VITALS: BP 127/52
--- NOTE | 2019-10-01 01:34 | NUR ---
MEDICATED WITH OXY AND PERCOCET FOR C/O PAIN EVERYWHERE RATED 7/10 ON A 0/10 PAIN SCALE. WILL MONITOR
--- NOTE | 2019-10-01 04:36 | NUR ---
Upon discharge recommend patient to follow up for wound care in outpatient setting continue current wound care orders at discharging facility.
[2019-10-01 08:00] VITALS: BP 154/55
--- NOTE | 2019-10-01 08:35 | NUR ---
MEDICATED WITH PRN PERCOCET WITH OXYCODONE AND PHENERGAN FOR BACK/LEGS/HANDS PAIN AND NAUSEA.
--- NOTE | 2019-10-01 09:00 | NUR ---
case management visits with patient, social service assistant is working on a short term half-way for patient when he is medically stable for discharge, case management will follow
--- NOTE | 2019-10-01 09:07 | NUR ---
PRECERT has been started. Patient accepted at [facility] this morning and PRECERT was started. -SHANKAR Love
--- NOTE | 2019-10-01 10:09 | NUR ---
PRN PERCOCET, OXYCODONE AND PHENERGAN EFFECTIVE, PER PATIENT.
--- NOTE | 2019-10-01 10:50 | NUR ---
OT NOTE Pt was seen this A.M. 1:1 for 20 minute OT session. Upon arrival pt was supine in bed. Pt identified by name and and had complaints of 10/10 R heel pain. Pt transferred supine to sit EOB with Allie for assist with LLE. While sitting EOB requested for pt to audie B socks and surgical shoe and pt reported "I can't and I won't, that's your job. Why does everyone around here have to be so stupid." Educated pt on importance of I and purpose of occupational therapy. Pt continued to decline resulting in maxA for donning. Sit to stand completed from the bed level with Allie X 2 and use of w/w for UE support. Functional mobility was then completed to the bathroom with Allie and use of w/w while being WBAT to RLE with surgical shoe in place. Pt required a seated rest break and was unable to make it back to the bed due to quick onset of fatigue. Pt then transferred back into bed sit to supine with Allie. There he was left with call light in hand, tray table in place, and bed alarm activated for safety. COntinue with rec D/C plan to SNF. ALESSIA Jerez
--- NOTE | 2019-10-01 11:48 | NUR ---
PHYSICAL THERAPY Patient presented to therapy in supine with head of bed elevated and bed alarm activated. Patient was identified by name and on wristband. Patient gives informed consent for treatment. Patient is WBAT on the R LE with post op shoe on foot. Patient wears orthotic shoe on L foot. Patient performed supine to sitting on EOB transfer with MIN A X 1. Patient sat on EOB with CGA X 1. Patient sit to stand from EOB with MIN A X 1 to Wh Walker. Patient performed gait with Wh Walker and CGA X 2 with rolling chair follow and verbal cues for upright posture and lifting the L FOOT to clear floor. Patient transferred TO BEDSIDE CHAIR and was in the chair only a short time and then asked to transfer back to supine in bed because his back was hurting. Patient sit to stand out of bedside chair with MIN A X 2 and then stand pivot to EOB with CGA X 1. Patient performed sit to supine transfer with MIN A X 1. Patient was left in supine in bed with head of bed elevated, call light within reach, and bed alarm activated. Patient was 1:1 this ARCHITECTURAL MODEL MAKER for 20 minutes total. RAIZA RUIZ ARCHITECTURAL MODEL MAKER
--- NOTE | 2019-10-01 11:49 | NUR ---
PRECERT has been started. SHANKAR completed HENs. -SHANKAR Love
[2019-10-01 12:00] VITALS: BP 141/63
[2019-10-01 16:00] VITALS: BP 142/65
--- NOTE | 2019-10-01 16:18 | NUR ---
MEDICATED WITH PRN PO PERCOCET WITH OXYCODONE FOR PAIN TO LEGS/BACK/HANDS/ARMS.
--- NOTE | 2019-10-01 19:10 | NUR ---
MEDICATED WITH PRN PO TYLENOL FOR BACK PAIN.
[2019-10-01 20:00] VITALS: BP 130/55
[2019-10-02] VITALS: BP 151/60
[2019-10-02 07:10] LABS: BASO % 0.6 % (0.0-1.0); EOS # 0.2 10*3/uL (0.0-0.4); HEMATOCRIT 26.3 % (42.0-52.0); HEMOGLOBIN 8.2 g/dl (14.0-18.0); LYMPH % 20.2 % (27.0-41.0); MEAN CELL VOLUME 90.7 fl (80.0-94.0); MEAN CORPUSCULAR HGB 28.3 pg (27.0-31.0); MEAN CORPUSCULAR HGB CONC 31.2 g/dl (33.0-37.0); MEAN PLATELET VOLUME 11.4 fl (9.6-12.3); MONO # 0.8 10*3/uL (0.1-1.0); MONO % 15.6 % (3.0-9.0); NEUT % 59.8 % (47.0-73.0); RED CELL DISTRI WIDTH 15.2 % (0-14.5)
[2019-10-02 07:11] LABS: PLATELET COUNT AUTOMATED 183 10*3/uL (130-400)
[2019-10-02 07:23] LABS: CHLORIDE 106 mmol/L (98-107); POTASSIUM 4.5 mmol/L (3.5-5.1); SGOT/AST 16 IU/L (3-35); SODIUM 138 mmol/L (136-145)
[2019-10-02 07:26] LABS: ALKALINE PHOSPHATASE 136 U/L (45-117); CREATININE 1.28 mg/dL (0.70-1.30); SGPT/ALT 45 U/L (12-78); TOTAL PROTEIN 5.9 gm/dL (6.4-8.2)
[2019-10-02 07:43] LABS: BUN 44 mg/dl (7-24)
[2019-10-02 08:00] VITALS: BP 127/53
--- NOTE | 2019-10-02 08:13 | NUR ---
[facility], [facility] precert on how fair the patient is gaiting and his prior level of function. SULFUR CHLORIDE OPERATOR emailed the Priority list. -SHANKAR Love
--- NOTE | 2019-10-02 08:45 | NUR ---
PT RESTING IN BED. NO DISTRESS NOTED. WILL MONITOR
--- NOTE | 2019-10-02 09:15 | NUR ---
PHYSICAL THERAPY Patient seen this am 1;1 for therapy visit and was resting supine in bed upon therapist arrival. Patient identified by name / and presented with B LE melanie wraps. Patient is WBAT on R LE with use of Surgical shoe and transfers supine to sit EOB with MIN A. Patient reports chronic B knee stiffness and performed sit to stand transfer, MIN/CGA, use of std walker standing support. Patient ambulated 25'x 1, CGA, std walker, demonstrating slow, cautious, unsteady gait pattern. Patient easily becomes agitated / frustration secondary to constant medical issues. Patient needed multiple v/c's to improve walker safety / navigation to avoid increased risk of falls. Patient returned to bedside chair with mild fatigue and following brief seated rest reviewed seated HEP. Patient received copy of HEP and performed seated B LE therex, all planes, x 15 reps each to increase LE strength. Patient remained in bedside chair with call light, tray table and telephone. Will continue per POC as tolerated, total treatemnt time 23 minutes. Abdullahi Orta, CASINO FLOOR RUNNER
--- NOTE | 2019-10-02 09:38 | NUR ---
OT NOTE PATIENT SEEN OT 25 MINUTES THIS DATE. PATIENT INDENTIFIED BY NAME AND DATE OF . PATIENT COMPLETED BED MOBILTY SBA SUPINE TO SIT. COMPLETED SIT TO STAND FROM BED CGA AND AMBULATED USE STANDARD WALKER SHORT DISTANCE CGA WITH FAIR SAFETY. PATIENT WITH SURGICAL SHOE RIGHT FOOT AND UNABLE TO BEAR WEIGHT INTO LEFT HEEL DUE TO COMPLAINT UNEVEN LEG LENGTH. PATIENT REPORTS THAT HE ALREADY BATHED TODAY. PATIENT REQUESTED EDUCATION HAND EXERCISES [facility] PATIENT EDUCATED BILATERAL HAND EXERCISES ALL PLANES X 15 REPS SEATED WITH GOOD UNDERSTANDING. PATIENT SEATED IN RECLINER WITH CALL LIGHT WITHIN REACH END OF SESSION AND NO OTHER NEEDS VERBALIZED. CONTINUE TOWARDS PLAN OF CARE. VANDANA ZHANG/Ginger
--- NOTE | 2019-10-02 10:13 | NUR ---
Patient seen 1:1 for Occupational Therapy to obtain prior level of function for insurance precert. Patient lives alone in a 1 fl home with the bathroom in the basement. he has a stairglide to the basement. He has 3 steps to enter the home without a handrail. He is fearful of returning home because he lives alone and uses a wh walker with BLE and BUE wounds when he was on the floor x3 days prior to admission and patient has no recall of how or why this happened. Prior to admission he admits he struggles with self care but he was able to bath after he placed plastic over his wounds and he could dress himself at IN level. He was independent in toileting,grooming. He was able to use the microwave only for meals and he has a walker tray. Patient was able to perform sit to stand from recliner with moderate assist. Patient educated in safe transfers including rate of performance and hand placement. Patient needed mod +2 assist for bed mobility and min assist sit to supine. Patient was seen for 15 min of OT and bed alarm was activated, call button in reach and both heel protectors applied. Recommend SNF to enable safe return home alone Diann Davis OTR/l
--- NOTE | 2019-10-02 11:30 | NUR ---
PT REQUESTED AND GIVEN PERCOCET FOR C/O GEN PAIN. PT RATES PAIN 5/10 WILL MONITOR
--- NOTE | 2019-10-02 11:39 | NUR ---
BILLING AND QUALITY TECHNICIAN faxed updated PT/OT notes to update the patients PRECERT. -SHANKAR Love
[2019-10-02 12:00] VITALS: BP 142/61
--- NOTE | 2019-10-02 13:00 | NUR ---
PT STATES THAT PERCOCET HELPED A LITTLE WILL MONITOR
[2019-10-02 16:00] VITALS: BP 118/57
--- NOTE | 2019-10-02 17:31 | NUR ---
PT REQUESTED AND GIVEN PERCOCET AND OXY IF FOR C.O GEN PAIN PT RATES PAIN 8 WILL MONITOR
[2019-10-02 20:00] VITALS: BP 125/52
[2019-10-03] VITALS: BP 149/57
[2019-10-03 08:00] VITALS: BP 166/68
--- NOTE | 2019-10-03 08:58 | NUR ---
PRECERT is still pending. -SHANKAR Love
--- NOTE | 2019-10-03 10:05 | NUR ---
PT REQUESTED AND GIVEN OXY IR AND PERCOCET FOR C/O GEN PAIN. PT RATES PAIN 06/29 WILL MONITOR
--- NOTE | 2019-10-03 10:40 | NUR ---
HACK SAW OPERATOR spoke with the patient about about his PRECERT being sent on to Pharmacy Sales Representative for review. HACK SAW OPERATOR explained the out of cost pocket for SNF at [facility] would be $6300 for Semi Private room and $7050 for a private if available. Patient stated he would just go home with home coby. He stated he had previously had [facility] and would like them again if PRECERT is denied. HACK SAW OPERATOR informed Bottom Ironer Aimee. -SHANKAR Love
--- NOTE | 2019-10-03 11:00 | NUR ---
PT BILATERAL ARM AND LEG DRESSINGS DONE ORDERED
--- NOTE | 2019-10-03 11:37 | NUR ---
PT ASKING FOR PAIN MEDICATION PT INFORMED THAT HE JUST GOT PAIN MEDS AT [facility] . PT STATES THAT CAN NOT BE TRUE PT WAS SHOWN THE EMAR SHOWING THE TIME THAT THE LAST PAIN MEDICATION WAS GIVEN
[2019-10-03 12:00] VITALS: BP 163/58
--- NOTE | 2019-10-03 13:03 | NUR ---
PRECERT has been obtained. Patient can go to [facility] if medically stable. -SHANKAR Love
--- NOTE | 2019-10-03 13:26 | NUR ---
Occupational Therapy treatment this date for education, safety, transfers,bed mobility and ADLs. Patient was supine in bed upon arrival, stating that he just had the dressings on his leg and UE wounds changed and he was in "burning pain" on a 8/10 level. Patient was able to lift both feet for socks and right post op shoe on at max assist. When OTR offered to get reachers to allow patient to don own sock and post op boot, he repeated "no,no,no" and declined the equipment he says he has at home and uses. Patient was able to perform supine to sitting at supervision level and sit to stand at CGA/Min a for hand placement and safety w/ ww. Patient had mild loss of balance w/ ww in functional mobility this date. Continue with OT per pOC. Patient seen x 26 minutes this date. Recommend SNF upon d/c. Call light and telephone left within reach. Diann Davis OTR/Ginger
--- NOTE | 2019-10-03 13:35 | NUR ---
PHYSICAL THERAPY Patient seen this pm 1:1 for therapy visit and was sitting up EOB with OTR present upon therapist arrival. Patient identified by name / and reports 10/10 global generalized pain, especially in B knees. Patient tranfers sit to stand CGA and ambulates with use std walker, 40'x 1, CGA, however still demonstrates unsteady gait pattern secondary to c/o of uneven stride due to use of R surgical shoe. Patient is WBAT with R surgical shoe and returned to bedside chair with increased fatigue. Patient needed multiple v/c's to improve smoother zay and increased walker safety to avoid risk of falls. Patient remained in bedside chair with call light and telephone as he refused body alarm. Will continue per POC as tolerated, total treatment time 13 minutes. Abdullahi Orta, VACUUM METALIZER OPERATOR
[2019-10-03] MEDS ORDERED: Lantus SC (14:59)
[2019-10-03] MEDS ORDERED: Humalog SQ (14:59)
[2019-10-03] MEDS ORDERED: METFORMIN HYD1000 MG PO (14:59)
[2019-10-03] MEDS ORDERED: Vitamin D PO (14:59)
--- NOTE | 2019-10-03 15:17 | NUR ---
PT REFUSED DC WOUND PHOTOS
--- NOTE | 2019-10-03 15:36 | NUR ---
CABINET AND TRIM INSTALLER notified of patients dishcarge. CABINET AND TRIM INSTALLER spoke to patient he stated he could try and find a ride. He called a Carol and left a message. CABINET AND TRIM INSTALLER waited and reached back out to the patient. He stated he was unable to get in touch with her. CABINET AND TRIM INSTALLER reached out to patients brother. He is able to transport the patient between 4:30 and 5. CABINET AND TRIM INSTALLER spoke with RN. She is aware of family transporting. CABINET AND TRIM INSTALLER notified [facility] and faxed discharge orders. -SHANKAR Love
[2019-10-03 16:00] VITALS: BP 146/63
--- NOTE | 2019-10-03 16:48 | NUR ---
ATTEMPTED TO CALL REPORT TO [facility] PHONE KEPT GOING DIRECTLY TO A VOICEMAIL MESSAGE LEFT REGARDING TRYING TO GIVE REPORT
--- NOTE | 2019-10-03 18:30 | NUR ---
Discharge instructions reviewed with patient/family. Patient receptive and verbalizes understanding. Follow-up care arranged. Written instructions given to patient/family. STACI BARRON
--- NOTE | 2019-10-03 19:08 | NUR ---
REPORT CALLED TO [facility]
--- NOTE | 2019-10-04 08:11 | NUR ---
PHYSICAL THERAPY CO-SIGN I approve of the Physical Therapy notes written above. Lacey Cochran PT
== END 2019-10-03 21:18 | disposition other institution (70) | DRG 564 ==
LOC: ED 11:29 → 5E 12:50 → EDHOLD 12:50 → 5E 13:20
PROVIDERS: Emergency Medicine; Hospitalist; Internal Medicine; Registered Nurse; Student in an Organized Health Care Education/Training Program; ADMIT Internal Medicine
DX: T79.6XXA Traumatic ischemia of muscle, initial encounter (principal); N17.0 Acute kidney failure with tubular necrosis; E87.2 Acidosis; E87.0 Hyperosmolality and hypernatremia; E44.0 Moderate protein-calorie malnutrition; F33.2 Major depressive disorder, recurrent severe without psychotic features; L89.619 Pressure ulcer of right heel, unspecified stage; E11.51 Type 2 diabetes mellitus with diabetic peripheral angiopathy without gangrene; I08.3 Combined rheumatic disorders of mitral, aortic and tricuspid valves; E11.65 Type 2 diabetes mellitus with hyperglycemia; I70.209 Unspecified atherosclerosis of native arteries of extremities, unspecified extremity; W18.30XA Fall on same level, unspecified, initial encounter; R74.0 Nonspecific elevation of levels of transaminase and lactic acid dehydrogenase [LDH]; R79.89 Other specified abnormal findings of blood chemistry; E86.0 Dehydration; D64.89 Other specified anemias; E87.8 Other disorders of electrolyte and fluid balance, not elsewhere classified; E83.41 Hypermagnesemia; I25.10 Atherosclerotic heart disease of native coronary artery without angina pectoris; B35.1 Tinea unguium; X58.XXXA Exposure to other specified factors, initial encounter; S81.802A Unspecified open wound, left lower leg, initial encounter; Y93.89 Activity, other specified; Y92.098 Other place in other non-institutional residence as the place of occurrence of the external cause; Y99.8 Other external cause status; I25.2 Old myocardial infarction; Z95.1 Presence of aortocoronary bypass graft; Z79.899 Other long term (current) drug therapy; Z79.02 Long term (current) use of antithrombotics/antiplatelets; Z87.891 Personal history of nicotine dependence; Z89.422 Acquired absence of other left toe(s); Z95.828 Presence of other vascular implants and grafts; Z68.24 Body mass index [BMI] 24.0-24.9, adult

== ENCOUNTER 2019-11-01 21:01 | Inpatient (IN) | payer MEDICARE ==
[~2019-11-01] VITALS: Ht 177.8 cm; Wt 74.8 kg
[~2019-11-01 21:01] MED LIST: ALPRAZOLAM0.5 M3 PO; ATORVASTATIN CA80 M1 PO; CARVEDILOL3.125 MG PO; CLOPIDOGREL75 MG PO; Humalog SQ; LISINOPRIL10 M1 PO; Lantus SC; METFORMIN HYD1000 MG PO; PANTOPRAZOLE SO40 MG PO; PERCOCET 10-321 EACH PO; SERTRALINE HYDR50 MG PO; TORSEMIDE10 MG PO; Vitamin D PO
[2019-11-01 21:06] VITALS: BP 140/59
[2019-11-01 22:47] LABS: ACT PARTIAL THROMBO TIME 27.1 SECONDS (20.0-32.1); INTERNATIONAL NORM RATIO 1.1 (2.0-3.5)
[2019-11-01 22:53] LABS: ALBUMIN 2.7 gm/dl (3.1-4.5); CREATININE 1.74 mg/dL (0.70-1.30); POTASSIUM 4.7 mmol/L (3.5-5.1); TOTAL PROTEIN 6.9 gm/dL (6.4-8.2)
[2019-11-01 23:17] LABS: BASO % 0.4 % (0.0-1.0); EOS % 0.4 % (1.0-4.0); HEMOGLOBIN 8.1 g/dl (14.0-18.0); LYMPH # 0.4 10*3/uL (1.3-4.4); LYMPH % 9.4 % (27.0-41.0); MEAN CELL VOLUME 93.2 fl (80.0-94.0); MEAN CORPUSCULAR HGB CONC 31.2 g/dl (33.0-37.0); MEAN PLATELET VOLUME 10.2 fl (9.6-12.3); MONO # 0.5 10*3/uL (0.1-1.0); MONO % 10.1 % (3.0-9.0); NEUT # 3.6 10*3/uL (2.3-7.9); NEUT % 79.3 % (47.0-73.0); PLATELET COUNT AUTOMATED 183 10*3/uL (130-400); RED BLOOD COUNT 2.79 10*6/uL (4.50-5.90); RED CELL DISTRI WIDTH 15.9 % (0-14.5); WHITE BLOOD COUNT 4.6 10*3/uL (4.8-10.8)
[2019-11-01 23:48] LABS: BILIRUBIN NEGATIVE (NEGATIVE); BLOOD 1+ (NEGATIVE); CLARITY CLEAR (CLEAR); COLOR YELLOW (YELLOW); GLUCOSE NEGATIVE (NEGATIVE); KETONE NEGATIVE (NEGATIVE); LEUKO ESTERASE NEGATIVE (NEGATIVE); NITRITE NEGATIVE (NEGATIVE); PH 5.5 (5.0-9.0); SPECIFIC GRAVITY >= 1.030 (1.005-1.030); UROBILINOGEN 0.2 E.U./dl (0.2-1.0)
[2019-11-02 00:05] LABS: BACTERIA 1+; EPITHELIAL CELLS 0-2; RBC 21-30 rbc/hpf (0-2)
--- NOTE | 2019-11-02 02:30 | NUR ---
A 69, admitted to 5E, under the services of JAMI Rivero DO with a diagnosis of MULTIPLE FALLS, GEN WEAKNESS, UNABLE TO AMBULATE. Chief complaint is WEAKNESS. Patient arrived via bed from ER. Monitor applied. Initial assessment completed. Vital signs taken and recorded. JAMI RIVERO DO notified of admission to the unit. Orders received. See assessment for past medical history, medications and allergies. Patient and/or family oriented to unit. [address] visitation policy reviewed. Clothing/patient valuable form completed. MARCIAL MESA
--- NOTE | 2019-11-02 04:22 | NUR ---
WOUND CARE ORDERS REQUESTED. AWAITING.
[2019-11-02] MEDS ORDERED: JANUMET 50-1,01 EACH PO (05:51)
[2019-11-02 06:07] LABS: BASO % 0.7 % (0.0-1.0); EOS % 0.5 % (1.0-4.0); HEMATOCRIT 25.5 % (42.0-52.0); HEMOGLOBIN 7.7 g/dl (14.0-18.0); LYMPH # 0.6 10*3/uL (1.3-4.4); LYMPH % 15.3 % (27.0-41.0); MEAN CELL VOLUME 92.4 fl (80.0-94.0); MEAN CORPUSCULAR HGB 27.9 pg (27.0-31.0); MEAN CORPUSCULAR HGB CONC 30.2 g/dl (33.0-37.0); MEAN PLATELET VOLUME 10.5 fl (9.6-12.3); MONO # 0.7 10*3/uL (0.1-1.0); MONO % 15.6 % (3.0-9.0); NEUT # 2.8 10*3/uL (2.3-7.9); NEUT % 67.4 % (47.0-73.0); PLATELET COUNT AUTOMATED 191 10*3/uL (130-400); RED BLOOD COUNT 2.76 10*6/uL (4.50-5.90); RED CELL DISTRI WIDTH 16.2 % (0-14.5); WHITE BLOOD COUNT 4.2 10*3/uL (4.8-10.8)
[2019-11-02 06:36] LABS: ALBUMIN 2.6 gm/dl (3.1-4.5); POTASSIUM 4.8 mmol/L (3.5-5.1)
[2019-11-02 06:41] LABS: CREATININE 1.97 mg/dL (0.70-1.30); PHOSPHOROUS 4.2 mg/dL (2.5-4.9); TOTAL PROTEIN 6.4 gm/dL (6.4-8.2)
[2019-11-02 08:00] VITALS: BP 132/59
--- NOTE | 2019-11-02 08:05 | NUR ---
PT C/O OF NAUSEA AND PAIN, GENERALIZED ALL OVER 5/10 ACHES. PRN ZOFRAN AND NORCO GIVEN PER ORDER
--- NOTE | 2019-11-02 08:40 | NUR ---
PT RESTING IN BED PER PT HE DID HAVE RELIEF WITH PRN PAIN MEDICATION AND NAUSEA IS BETTER
[2019-11-02 12:00] VITALS: BP 140/62
--- NOTE | 2019-11-02 12:28 | NUR ---
PODIETRY NOTIFIED OF CONSULT
--- NOTE | 2019-11-02 13:20 | NUR ---
PT C/O OF NAUSEA AND PER PT HE WANTS SOMETHING BETTER. NOTIFIED
--- NOTE | 2019-11-02 13:51 | NUR ---
PRN PHENERGAN AND NORICO GIVEN FOR NAUSEA AND PAIN
--- NOTE | 2019-11-02 14:30 | NUR ---
PT RESTING WITH EYES CLOSED, SON AT BEDSIDE, NO COMPLAINTS AT THIS TIME
[2019-11-02 16:00] VITALS: BP 129/76
[2019-11-02 20:00] VITALS: BP 109/49
--- NOTE | 2019-11-02 21:00 | NUR ---
PRN NORCO EFFECTIVE PER PATIENT.
--- NOTE | 2019-11-02 21:16 | NUR ---
PRN ZOFRAN GIVEN AT THIS TIME FOR C/O NAUSEA, CALL LIGHT IS WITHIN REACH. WILL MONITOR EFFECT.
--- NOTE | 2019-11-02 21:18 | NUR ---
PATIENT IS RESTING IN BED WITH EASY AND REGULAR RESPERS ON ROOM AIR. ASSESSMENT IS COMPLETE WITH NO S/S OF DISTRESS NOTED AT THIS TIME. PATIENT C/O BEING DIABETIC AND NO ONE CHECKING HIS BLOOD GLUCOSE AND HIM BEING ON INSULIN AND LANTUS, AND ALSO C/O NAUSEA. BLOOD GLUCOSE CHECKED WITH A RESULT OF 109 AND PRN ZOFRAN GIVEN FOR NAUSEA. BED IS LOW, LOCKED, AND CALL LIGHT IS WITHIN REACH. WILL CONTINUE TO MONITOR. SEE SHIFT ASSESSMENT.
--- NOTE | 2019-11-02 22:30 | NUR ---
PRN ZOFRAN EFFECTIVE PER PATIENT.
--- NOTE | 2019-11-02 23:05 | NUR ---
2200 MEDICATIONS AND PRN NORCO GIVEN AT THIS TIME. PATIENT TOLERATED WELL, CALL LIGHT IS WITHIN REACH. WILL MONITOR EFFECT.
[2019-11-03] VITALS: BP 111/49
--- NOTE | 2019-11-03 | NUR ---
PRN NORCO EFFECTIVE PER PATIENT.
--- NOTE | 2019-11-03 04:15 | NUR ---
24 HR. CHART CHECK COMPLETE.
--- NOTE | 2019-11-03 06:06 | NUR ---
PRN NORCO AND ZOFRAN GIVEN FOR NAUSEA AND GENERALIZED BODY ACHES RATING A 5/10. CALL LIGHT IS WITHIN REACH, WILL MONITOR EFFECT.
[2019-11-03 06:43] LABS: HEMATOCRIT 26.5 % (42.0-52.0); HEMOGLOBIN 8.1 g/dl (14.0-18.0); MEAN CELL VOLUME 93.6 fl (80.0-94.0); MEAN CORPUSCULAR HGB 28.6 pg (27.0-31.0); MEAN CORPUSCULAR HGB CONC 30.6 g/dl (33.0-37.0); MEAN PLATELET VOLUME 10.9 fl (9.6-12.3); PLATELET COUNT AUTOMATED 189 10*3/uL (130-400); RED BLOOD COUNT 2.83 10*6/uL (4.50-5.90); RED CELL DISTRI WIDTH 16.5 % (0-14.5); WHITE BLOOD COUNT 3.9 10*3/uL (4.8-10.8)
--- NOTE | 2019-11-03 07:00 | NUR ---
PRN MEDICATIONS EFFECTIVE PER PATIENT. HEEL PROTECTORS APPLIED.
[2019-11-03 07:11] LABS: ALBUMIN 2.4 gm/dl (3.1-4.5); CREATININE 2.46 mg/dL (0.70-1.30); POTASSIUM 4.7 mmol/L (3.5-5.1); TOTAL PROTEIN 6.2 gm/dL (6.4-8.2)
[2019-11-03 07:46] LABS: PLATELET SUFFICIENCY NORMAL (NORMAL); ROULEAUX SLIGHT; TOTAL CELLS COUNTED 100 #CELLS
[2019-11-03 07:47] LABS: ACANTHOCYTES MODERATE
[2019-11-03 08:00] VITALS: BP 125/62
--- NOTE | 2019-11-03 10:00 | NUR ---
PHYSICAL THERAPY PT EVAL COMPLETED TODAY ON LEVEL 5: FULL EVALUATION TO FOLLOW. RECOMMEND PT WHILE HERE TO ADDRESS DECREASED STRNEGTH AND FUNCTIONAL MOBILITY. PT EVAL IS MODERATE COMPLEXITY: 81016. D/C RECOMMENDATIONS AT THIS TIME ARE SNF ON D/C TO MAXIMIZE FUNCTION AND DUE TO LIVING ALONE AND RECENT FALLS. THANK YOU FOR REFERRAL LYLY CALIX PT
[2019-11-03 12:00] VITALS: BP 136/73
[2019-11-03 16:00] VITALS: BP 134/62
--- NOTE | 2019-11-03 19:58 | NUR ---
Neurological: AAOX3 Respiratory: ROOM AIR, NONLABORED Breath sounds: DIMINISHED T/O Cough: NONE NOTED Cardiovascular: HRR, DENIES CP/PRESSURE, NO EDEMA, PPP Gastrointestinal: NORMOACTIVE X4 QUADS, DENIES N/V/D/C, SOFT/NONTENDER/NONDISTENDED Genito/Urinary: DENIES DYSURIA, UP TO RESTROOM Musculoskeketal: AMBULATORY W/ WALKER, MULTIPLE WOUNDS PATIENT IS RESTING IN CHAIR WITH NO S/S OF DISTRESS NOTED AT THIS TIME. PATIENT DOES C/O ALWAYS BEING IN PAIN. PATIENT IS ALSO REQUESTING MANDARIN ORANGES FOR A SNACK, CALL PLACED TO ROOM SERVICE. CALL LIGHT IS WITHIN REACH, WILL CONTINUE TO MONITOR, SEE SHIFT ASSESSMENT. ELLIOTT NEUMANN A
[2019-11-03 20:00] VITALS: BP 129/56
--- NOTE | 2019-11-03 20:08 | NUR ---
PATIENT C/O GENERALIZED PAIN RATING A 7/10, PRN MORPHINE PROVIDED PER ORDER. PATIENT TOELRATED WELL, CALL LIGHT IS WITHIN REACH. WILL MONITOR EFFECT.
--- NOTE | 2019-11-03 20:30 | NUR ---
PRN MORPHINE EFFECTIVE PER PATIENT. CALL LIGHT IS WITHIN REACH.
--- NOTE | 2019-11-03 21:05 | NUR ---
PRN TYLENOL GIVEN FOR C/O GENERALIZED PAIN RATING A 3/10. CALL LIGHT IS WITHIN REACH.
--- NOTE | 2019-11-03 22:00 | NUR ---
PRN MEDICATION EFFECTIVE PER PATIENT. CALL LIGHT WITHIN REACH.
[2019-11-04] VITALS: BP 138/63
--- NOTE | 2019-11-04 00:19 | NUR ---
PRN NORCO GIVEN FOR GENERALIZED PAIN RATING A 5/10. CALL LIGHT IS WITHIN REACH, WILL MONITOR EFFECT.
--- NOTE | 2019-11-04 01:00 | NUR ---
PRN NORCO EFFECTIVE PER PATIENT. BOX LUNCH PROVIDED AND CALL LIGHT IS WITHIN REACH.
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
--- NOTE | 2019-11-04 06:04 | NUR ---
PATIENT IS BEING VERY RUDE TO ELECTION WATCHER AND STAFF AT THIS TIME. INFORMED PATIENT THAT SHE IS JUST TRYING TO DO HER BEST TO UNDERSTAND HIS CURRENT SITUATION REGARDING WOUND CARE. PATIENT REFUSING ULTRASOUND OF LEGS AT FIRST STATING "I HAD THESE DONE IN [place] NOT TOO LONG AGO WHY DO THEY NEED TO DO THEM AGAIN." INFORMED PATIENT THAT MEDICAL RECORDS FROM [place] WERE TRYING TO BE OBTAINED AT THIS TIME AND OUR PHYSICIANS NEEDED THE IMAGING FOR THEMSELVES TO MAKE SURE PATIENT HAS ADEQUATE BLOOD FLOW TO LOWER EXTREMITIES . PATIENT IS IN AGREEANCE TO GET ULTRASOUND AT THIS TIME. PATIENT IS C/O GENERALIZED PAIN AND NAUSEA, PRN NORCO AND ZOFRAN GIVEN WITH AM MEDICATIONS. CALL LIGHT IS WITHIN REACH.
[2019-11-04 06:28] LABS: BASO % 0.2 % (0.0-1.0); EOS # 0.1 10*3/uL (0.0-0.4); EOS % 2.5 % (1.0-4.0); HEMATOCRIT 26.4 % (42.0-52.0); HEMOGLOBIN 8.2 g/dl (14.0-18.0); LYMPH % 24.3 % (27.0-41.0); MEAN CORPUSCULAR HGB 29.2 pg (27.0-31.0); MEAN CORPUSCULAR HGB CONC 31.1 g/dl (33.0-37.0); MEAN PLATELET VOLUME 10.5 fl (9.6-12.3); MONO # 0.6 10*3/uL (0.1-1.0); MONO % 14.9 % (3.0-9.0); NEUT # 2.3 10*3/uL (2.3-7.9); NEUT % 57.6 % (47.0-73.0); PLATELET COUNT AUTOMATED 166 10*3/uL (130-400); RED BLOOD COUNT 2.81 10*6/uL (4.50-5.90); RED CELL DISTRI WIDTH 16.4 % (0-14.5)
[2019-11-04 06:36] LABS: ALBUMIN 2.4 gm/dl (3.1-4.5); CREATININE 2.04 mg/dL (0.70-1.30); POTASSIUM 5.2 mmol/L (3.5-5.1)
[2019-11-04 06:37] LABS: TOTAL PROTEIN 6.2 gm/dL (6.4-8.2)
--- NOTE | 2019-11-04 07:59 | NUR ---
PHYSICAL THERAPY Screen recieved eval completed 11/03 and is on caseload thank you Lacey Cochran PT
[2019-11-04 08:00] VITALS: BP 136/68
--- NOTE | 2019-11-04 08:29 | NUR ---
PHYSICAL THERAPY Patient was eating breakfast at this time. Will check back with patient later. RAIZA RUIZ NEGOTIATOR
--- NOTE | 2019-11-04 08:39 | NUR ---
Dr. Montez stated to put wound care recommendations in the hospitalist office for Dr. Thakkar.
--- NOTE | 2019-11-04 08:42 | NUR ---
Occupational therapy orders received and nursing screen. Will follow up with the patient for completion of OT evaluation and POC. Thank you. Juany Griffith, OTR/L
--- NOTE | 2019-11-04 09:24 | NUR ---
PHYSICAL THERAPY Patient presented to therapy in supine with head od bed elevated and bed alarm on. Patient complained of a 8/10 LBP. Patient also complains of foot drop. Patient reports recent falls at home. Patient gives informed consent for treatment. Patient was identified by name and on wristband. Patient performed supine to sitting at EOB transfer with SBA. Patient sat on EOB with SBA. Patient performed sit to stand transfer from EOB with CGA X 1. Patient ambulated with Wh Walker and CGA X 1 for 60' x 2 with one standing rest break at the end of the 1st 60' distance. Patient performed 30 seconds sit to stand test with 4 sit to stands performed in 30 seconds total time with use of UEs to push of armrests of chair. Patient performed seated bilateral LE ther ex 2 x 10 reps each in all planes of movement for strengthenign the LEs in order to improve patient's functional mobility. Patient ambulated a 2nd time for 60 'x 1 with Wh Walker and CGA X 1. Patient transferred back to supine in bed with SBA. Patient was left in supine in bed with call light within reach, bed alarm on and head of bed elevated. Tray table left near patient. Patient was 1:1 with this BAND SAW RUNNER for 25 minutes total. RAIZA RUIZ BAND SAW RUNNER
--- NOTE | 2019-11-04 11:24 | NUR ---
Patient is unable to return to [facility] and [facility]. TRAINING ASSISTANT spoke with patients insurance. Patient is able to be referred to [facility], [facility], and [facility]. TRAINING ASSISTANT made referral to [facility]. Will need OT Eval to complete referral. -SHANKAR Love
[2019-11-04 12:00] VITALS: BP 142/55
--- NOTE | 2019-11-04 12:12 | NUR ---
Heading Maker in to talk to patient. Patient states lives at HOME with ALONE. There are FEW steps in the home. Physician: MICHELLE [facility] Home health services: [facility] Patient's level of ADLs: MODERATE ASSIST Patient has working utilities: YES DME: WALKER [facility]E Follow-up physician's appointment after d/c: WILL BE MADE BY HOSPITALIST NURSE DIRECTOR ON DISCHARGE Does patient want to access PORTAL?: NO Discharge plan PT LIVES AT HOME ALONE. WAS RECENTLY RELEASED FROM [facility] FOR REH[facility]. [facility] WILL NOT TAKE PT BACK. HEAD OF IT WORKING ON OTHER SKILLED FACILITIES. PT STATES HE HAS A WALKER AND CANE AT HOME. PT STATES HE IS UNABLE TO CARE FOR HIMSELF AT HOME. WILL CONTINUE TO FOLLOW. ELLIE CHRISTIANSEN
--- NOTE | 2019-11-04 13:45 | NUR ---
Occupational therapy orders received and chart reviewed. Patient was supine in bed refusing an OT evaluation at this time. Per patient, he is "not feeling well" and would prefer the evaluation at a later date. Patient was told that OT will try again tomorrow morning and he was agreeable to that. Will follow up. Thank you for the referral. Juany Griffith, OTR/L
--- NOTE | 2019-11-04 15:33 | NUR ---
PRECERT is required for patient to go to [facility]. Patient has been accepted to [facility]. Patient refused OT Eval today. Will start PRECERT as soon as Eval is complete. -SHANKAR Love
[2019-11-04 16:00] VITALS: BP 127/57
[2019-11-04 20:00] VITALS: BP 151/65
--- NOTE | 2019-11-04 20:39 | NUR ---
24 HR chart check completed.
--- NOTE | 2019-11-04 21:00 | NUR ---
SITTING IN RECLINER. RESPIRATIONS EASY. LUNGS DIMINISHED, CLEAR. PULSE OX 93% RA. +1 BLE EDEMA, ENCOURAGED TO ELEVATE LEGS BUT PATIENT DELCINES. CALL LIGHT WITHIN REACH. NO VOICED COMPLAINTS
--- NOTE | 2019-11-04 22:50 | NUR ---
REQUESTED AND RECEIVED NORCO PER PRN ORDER FOR COMPLAINTS OF BLE PAIN RATING A 7. CALL LIGHT WITHIN REACH. WILL MONITOR FOR EFFECTIVENESS
[2019-11-05] VITALS: BP 160/64
--- NOTE | 2019-11-05 | NUR ---
MEDS APPEAR EFFECTIVE. REMAINS IN RECLINER, SLEEPING. RESPIRATIONS EASY. CALL LIGHT WITHIN REACH.
--- NOTE | 2019-11-05 03:15 | NUR ---
MEDICATED WITH NORCO FOR C/O GENERALIZED PAIN RATED AN 9/10.
--- NOTE | 2019-11-05 04:00 | NUR ---
meds appear effective. sleeping in recliner. call light within reach
--- NOTE | 2019-11-05 05:00 | NUR ---
immediately upon awakening, patient requesting "something for pain." reminded that he had received norco at 0315
--- NOTE | 2019-11-05 06:00 | NUR ---
RESTING IN BED. RESPIRATIONS EASY. CALL LIGHT WITHIN REACH
[2019-11-05 06:20] LABS: BASO % 0.6 % (0.0-1.0); EOS # 0.1 10*3/uL (0.0-0.4); EOS % 2.1 % (1.0-4.0); HEMATOCRIT 28.1 % (42.0-52.0); HEMOGLOBIN 8.7 g/dl (14.0-18.0); LYMPH # 0.9 10*3/uL (1.3-4.4); LYMPH % 18.8 % (27.0-41.0); MEAN CORPUSCULAR HGB 29.1 pg (27.0-31.0); MEAN PLATELET VOLUME 10.8 fl (9.6-12.3); MONO # 0.5 10*3/uL (0.1-1.0); MONO % 9.7 % (3.0-9.0); NEUT # 3.3 10*3/uL (2.3-7.9); NEUT % 68.2 % (47.0-73.0); PLATELET COUNT AUTOMATED 199 10*3/uL (130-400); RED BLOOD COUNT 2.99 10*6/uL (4.50-5.90); RED CELL DISTRI WIDTH 16.3 % (0-14.5); WHITE BLOOD COUNT 4.8 10*3/uL (4.8-10.8)
[2019-11-05 06:56] LABS: CHLORIDE 113 mmol/L (98-107); POTASSIUM 5.2 mmol/L (3.5-5.1); SODIUM 140 mmol/L (136-145)
[2019-11-05 07:01] LABS: CREATININE 1.42 mg/dL (0.70-1.30)
[2019-11-05 07:10] LABS: BUN 35 mg/dl (7-24)
--- NOTE | 2019-11-05 07:23 | NUR ---
PATIENT CALLING OUT FOR "SOMETHING FOR PAIN." UPON ENTERING ROOM, PATIENT SLEEPING. PATIENT AWAKENED AND C/O BACK AND KNEE PAIN RATING A 9.5. MEDICATED WITH NORCO PER PRN ORDER. CALL LIGHT WITHIN REACH. WILL MONITOR
--- NOTE | 2019-11-05 07:59 | NUR ---
PHYSICAL THERAPY Screen reeceived, pt has been evaluated by PT and is on caseload thank you Lacey Cochran PT
[2019-11-05 08:00] VITALS: BP 164/70
--- NOTE | 2019-11-05 08:42 | NUR ---
Occupational Therapy evaluation completed on 5 with full eval to follow. Precautions include fall risk; history of multiple falls,both knees contusions,poor sensation both hands,impulsive at times,right heel wound,drop foot; steps high to compensate, ww use,moderate complexity level 40533. Recommend OT per POC to address ADl areas,compensatory strategies for lack of hand sensation in AdlS, walker safety, functional transfers and stand tolerance. Recommend SNF to determine best ability to function. Thank you. Diann Davis OTR/l
--- NOTE | 2019-11-05 08:45 | NUR ---
PHYSICAL THERAPY Patient seen this am 1:1 for therapy visit and was sitting up in bedside chair following OT Evaluation. Patient identified by name / and reports chronic 10/10, B knee pain. Patient transfers sit to stand from low chair surface, MIN A and ambulates with use of wh walker, 40'x 1, CGA, demonstrating slow, antalgic gait pattern, decreased stride and "slouched" standing posture. Patient also fatigues quickly while returning to bedside chair and needed v/c for safe step sequence during 180 turn around. Patient remained in bedside chair with call light, tray table and telephone. Will continue per POC as tolerated, total treatment time 14 minutes. Abdullahi Orta, SURFACER OPERATOR
--- NOTE | 2019-11-05 10:04 | NUR ---
TORSEMIDE NOT CROSSED OVER AFTER CONTINUED ON HOME MED LIST. DR. ALCARAZ AWARE AND IT IS TO NOT BE GIVEN.
--- NOTE | 2019-11-05 10:04 | NUR ---
Dr. Bashir notified of wound care recommendations.
--- NOTE | 2019-11-05 10:42 | NUR ---
PRECERT required for [facility]. Patient has been accepted. SALES AND PRODUCTION MANAGER faxed OT Eval and updates to start PRECERT to [facility]. -SHANKAR Love
[2019-11-05 12:00] VITALS: BP 109/55
--- NOTE | 2019-11-05 13:57 | NUR ---
PT HAS BEEN ACCEPTED TO [facility], WILL REQUIRE A PRECERT BEFORE GOING. WILL CONTINUE TO FOLLOW.
[2019-11-05 16:00] VITALS: BP 154/68
--- NOTE | 2019-11-05 19:18 | NUR ---
24 HR chart check completed.
--- NOTE | 2019-11-05 19:53 | NUR ---
NICOLAS GIVEN PER ORDER FOR BACK AND ARM PAIN PER PT. RATED "10" SEE MAR.
[2019-11-05 20:00] VITALS: BP 168/86
--- NOTE | 2019-11-05 20:55 | NUR ---
NICOLAS EFFECTIVE PER PT. FOR PAIN.
[2019-11-06] VITALS (9 sets, daily range): BP systolic 114–212; BP diastolic 52–82
--- NOTE | 2019-11-06 00:20 | NUR ---
PT. UPSET THAT RIGHT LEG IS SWELLING AND HE WANTED TO KNOW IF HE WAS GETTING HIS WATER PILL. PATIENT HAD NOT BEEN GETTING A WATER PILL AND THIS RN WILL CALL DOCTOR AND LET THEM KNOW WHAT IS GOING ON AND THAT PATIENT UNABLE TO TAKE LASIX BECAUSE IT GIVES HIM DIARRHEA.
--- NOTE | 2019-11-06 00:22 | NUR ---
SPOKE WITH DR. TARANGO ABOUT PATIENT RIGHT LEG SWELLING AND HE WANTED HIS WATER PILL (TORSEMIDE). DR. TARANGO WAS GOING TO COME SPEAK WITH PATIENT AND EXAMINE HIM.
--- NOTE | 2019-11-06 01:26 | NUR ---
PATIENT WANTS "WATER PILL MEDICATION" NOW, HAKEEM CALLED DR. TARANGO AND HE SAID TO CHANGE TIME TO GIVE TONIGHT. CALLED [facility] TO EXPEDITE ORDER.
--- NOTE | 2019-11-06 02:45 | NUR ---
[id number] PATIENT CALLED OUT AFTER HAVING BEEN TO BATHROOM AND WAS FEELING SOB. LUNG SOUNDS FINE CRACKLES IN BASES BILAT. PULSE OX 97% RA. BP 212/82. CALLED AND SPOKE WITH DR. TARANGO ABOUT THIS AND ORDER TO BE RECEIVED.
--- NOTE | 2019-11-06 03:13 | NUR ---
APRESOLIN GIVEN PER ORDER FOR ELEVATED BP. O2 2L VIA NC APPLIE FOR SOB.
--- NOTE | 2019-11-06 03:43 | NUR ---
PATIENT STILL C/O SOB, BLOOD PRESSURE RETAKE STILL 212/82 MANUALLY. PATIENT HAD TO VOID BUT HAS TO STAND TO DO IT. ASSISTED PT. WITH STANDING AND VOIDING. WHEN DONE PATIENT SAID "I CAN'T DO THAT AGAIN..... WHAT AM I GOING TO DO I CAN'T BREATH BUT I HAVE TO STAND TO PEE. CATHETER I GOING TO HAVE TO HAVE A CATHETER."
--- NOTE | 2019-11-06 03:53 | NUR ---
CALLED DR. TARANGO AND NOTIFIED HIM OF ALL PATIENT COMPLAINTS AND BP. ORDER TO BE RECEIVED.
--- NOTE | 2019-11-06 04:03 | NUR ---
ATIVAN GIVEN PER ORDER FOR ANXIETY. SEE JAN. BP RECHECKED 192/ MANUALLY.
--- NOTE | 2019-11-06 04:15 | NUR ---
STOOD UP TO VOID AGAIN VOIDED 350CC.PT. SITTING BACK IN CHAIR. CLOSING EYES. PT.THROUGHOUT THIS WHOLE TIME HAS BEEN ABLE TO SPEAK IN FULL SENTENCES, NO RETRACTIONS NOTED.
--- NOTE | 2019-11-06 04:38 | NUR ---
ATIVAN BECOMING EFFECTIVE. PT. EYES CLOSED AND RESP REG AND EASY AT THIS TIME.
[2019-11-06 06:09] LABS: BASO % 0.5 % (0.0-1.0); EOS # 0.1 10*3/uL (0.0-0.4); EOS % 1.4 % (1.0-4.0); HEMATOCRIT 29.9 % (42.0-52.0); HEMOGLOBIN 9.4 g/dl (14.0-18.0); LYMPH # 0.7 10*3/uL (1.3-4.4); LYMPH % 10.3 % (27.0-41.0); MEAN CELL VOLUME 91.2 fl (80.0-94.0); MEAN CORPUSCULAR HGB 28.7 pg (27.0-31.0); MEAN CORPUSCULAR HGB CONC 31.4 g/dl (33.0-37.0); MEAN PLATELET VOLUME 10.9 fl (9.6-12.3); MONO # 0.4 10*3/uL (0.1-1.0); MONO % 6.1 % (3.0-9.0); NEUT # 5.3 10*3/uL (2.3-7.9); NEUT % 81.2 % (47.0-73.0); PLATELET COUNT AUTOMATED 240 10*3/uL (130-400); RED BLOOD COUNT 3.28 10*6/uL (4.50-5.90); RED CELL DISTRI WIDTH 15.9 % (0-14.5); WHITE BLOOD COUNT 6.5 10*3/uL (4.8-10.8)
[2019-11-06 06:12] LABS: BUN 26 mg/dl (7-24); CHLORIDE 110 mmol/L (98-107); CREATININE 1.21 mg/dL (0.70-1.30); POTASSIUM 5.1 mmol/L (3.5-5.1); SODIUM 138 mmol/L (136-145)
--- NOTE | 2019-11-06 06:45 | NUR ---
PT.SAYS HE'S FEELING MUCH BETTER, SWELLING GOING DOWN IN RIGHT LEG, SCROTUM SWELLING DIMINISHING.
--- NOTE | 2019-11-06 08:52 | NUR ---
Dr. Mejía notified of wound care recommendations.
--- NOTE | 2019-11-06 11:00 | NUR ---
OT NOTE Pt was seen this A.M. 1:1 for 14 minute OT session. Upon arrival pt was sitting upright in the recliner. Pt identified by name and and had complaints of 10/10 B knee pain and in his hands. While sitting in the recliner pt completed grooming task of brushing his hair with supervision. Pt had reports that he usually can not brush his hair due to poor dexterity and orthodontic treatment coordinator strength. Educated pt on built up for utensils during meals, hair brush for grooming, tooth brush, and many other ADL tasks. Pt stated "i have had them before, they don't work so I don't want them." Sit to stand completed from chair level with CGA and use of w/w. Functional mobility completed to the bathroom and back with CGA and use of w/w. Challenged pt's dynamic standing tolerance needed for increased I in self care tasks and functional transfers. Pt was able to tolerate aprox 4 minutes before sitting due to fatigue. Pt was left sitting upright in the recliner with call light in hand, tray table in place, and phone in reach. Continue with rec D/C plan to SNF. VICENTE Jerez/Ginger
--- NOTE | 2019-11-06 11:00 | NUR ---
PHYSICAL THERAPY Patient seen this am 1:1 for therapy visit and was sitting up in bedside chair upon therapist arrival. Patient identified by name / and reports chronic 10/10 B LE pain, including increased R LE edema, R heel gauze wrap. Patient also stated he has voided several Liters of fluid which has helped reduced his edema. Patient transfers sit to stand from low chair surface MIN/CGA and ambulates with use of wh walker, CGA, 50'x 1 while demonstrating slow, antalgic gait pattern. Patient also fatigues quickly, returning to bedside chair and remained with call light, tray table and telephone. Patient refuses body alarm for safety and will continue per POC as tolerated, total treatment time 16 minutes. Abdullahi Orta, AUTO SELF SERVICE STATION ATTENDANT
--- NOTE | 2019-11-06 12:04 | NUR ---
C/O PAIN OF 9.5/10 TO KNEES, BACK AND HANDS. PERCOCET GIVEN AT THIS TIME. WILL CONT TO MONITOR. CALL LIGHT IN REACH.
--- NOTE | 2019-11-06 12:55 | NUR ---
STILL WAITING ON PRECERT FOR PT TO GO TO [facility]. WILL CONTINUE TO FOLLOW.
--- NOTE | 2019-11-06 13:29 | NUR ---
PRECERT is still pending. RADIATION CONTROL SPECIALIST faxed updates to [facility]. RADIATION CONTROL SPECIALIST completed HENs. -SHANKAR Love
--- NOTE | 2019-11-06 15:13 | NUR ---
PT MEDICATED WITH PRN ZOFRAN FOR C/O NAUSEA.
--- NOTE | 2019-11-06 15:26 | NUR ---
OCCUPATIONAL THERAPY CO-SIGN I approve of the Occupational Therapy notes written above. VERNELL URIAS OTR/Ginger
--- NOTE | 2019-11-06 15:58 | NUR ---
PER RYANN PT WAS DENIED SNF STAY. PEER TO PEER MUST BE COMPLETED BY 12 NOON TOMORROW. RYANN IS SENDING PEER TO PEER [facility] NURSE DIRECTOR. DR ALCARAZ RESIDENT CALLED AND INFORMED.
--- NOTE | 2019-11-06 20:21 | NUR ---
PERCOCET GIVEN PER ORDER FOR PAIN RATED "9.5" SEE MAR.
--- NOTE | 2019-11-06 21:20 | NUR ---
PERCOCET EFFECTIVE FOR PAIN PER PT.
--- NOTE | 2019-11-06 23:00 | NUR ---
PT. SLEEPING IN BED. NO ACUTE DISTRESS NOTED.
[2019-11-07] VITALS: BP 136/63
--- NOTE | 2019-11-07 00:48 | NUR ---
24 HR chart check completed.
--- NOTE | 2019-11-07 01:50 | NUR ---
C/O PAIN BACK AND ARMS RATED "9" PERCOCET GIVEN PER ORDER FOR PAIN. SEE MAR.
--- NOTE | 2019-11-07 02:20 | NUR ---
AWAKE UP TO BATHROOM WITH WALKER / MINIMAL ASSISTANCE AND THEN BACK TO CHAIR. PT. SLEEPING BETTER TONIGHT.
--- NOTE | 2019-11-07 02:50 | NUR ---
PERCOCET EFFECTIVE AT DECREASING PAIN PER PT.
--- NOTE | 2019-11-07 04:30 | NUR ---
PT. SLEEPING IN CHAIR. NO ACUTE DISTRESS NOTED.
--- NOTE | 2019-11-07 04:57 | NUR ---
Upon discharge recommend patient to follow up for wound care in outpatient setting continue current wound care orders at discharging facility.
[2019-11-07 07:00] VITALS: BP 158/74
[2019-11-07 07:01] LABS: BASO % 0.6 % (0.0-1.0); EOS # 0.1 10*3/uL (0.0-0.4); EOS % 2.6 % (1.0-4.0); HEMATOCRIT 28.7 % (42.0-52.0); HEMOGLOBIN 8.9 g/dl (14.0-18.0); LYMPH # 1.1 10*3/uL (1.3-4.4); LYMPH % 21.3 % (27.0-41.0); MEAN CELL VOLUME 91.4 fl (80.0-94.0); MEAN CORPUSCULAR HGB 28.3 pg (27.0-31.0); MEAN PLATELET VOLUME 10.7 fl (9.6-12.3); MONO # 0.5 10*3/uL (0.1-1.0); MONO % 8.4 % (3.0-9.0); NEUT # 3.6 10*3/uL (2.3-7.9); NEUT % 66.9 % (47.0-73.0); PLATELET COUNT AUTOMATED 242 10*3/uL (130-400); RED BLOOD COUNT 3.14 10*6/uL (4.50-5.90); RED CELL DISTRI WIDTH 16.1 % (0-14.5); WHITE BLOOD COUNT 5.4 10*3/uL (4.8-10.8)
--- NOTE | 2019-11-07 07:12 | NUR ---
SHANKAR received the following message after hours from [facility]. INTENT TO DENY BY [employer] Peer to peer is offered must be done by noon tomorrow 11/07/19 Call [phone] to initiate Case number is [id number] Reasoning: member just had a snf stay and medical laboratory specialist feels his needs can be met at a lower level of care, re: [facility], outpatient. CLINICAL EDUCATION ASSISTANT spoke with Line Fixer SHANKAR Lee attempted to call Hospitalist [phone] two different times at 4pm yesterday to no answer. SHANKAR sent message to RN Hospitalist Coordinator with this information in it as well. -SHANKAR Love
--- NOTE | 2019-11-07 07:15 | NUR ---
REPORT RECIEVED FROM MAYCO TILLEY. PT AWAKE AND SITTING IN CHAIR AT THIS TIME. PT RESPIRATIONS EASY AND UNLABORED. CALL LIGHT IN REACH.
[2019-11-07 07:21] LABS: BUN 27 mg/dl (7-24); CHLORIDE 113 mmol/L (98-107); CREATININE 1.19 mg/dL (0.70-1.30); POTASSIUM 5.3 mmol/L (3.5-5.1); SODIUM 141 mmol/L (136-145)
[2019-11-07 08:00] VITALS: BP 154/70
--- NOTE | 2019-11-07 08:30 | NUR ---
PERCOCET AND ZOFRAN GIVEN FOR COMPLAINTS OF CHRONIC PAIN AND NAUSEA ASSOCIATED WITH ANTIBIOTIC. WILL MONITOR EFFECTIVENESS.
--- NOTE | 2019-11-07 10:30 | NUR ---
OT NOTE Pt was seen this A.M. 1:1 for 15 minute OT session. Upon arrival pt was sitting upright in the recliner. Pt identified by name and and had complaints of 9/10 pain in BLE. Pt completed sit to stand from chair level with SBA and use of w/w for UE support. Functional mobility was then completed to the bathroom and back with SBA and use of w/w. Challenged pt's dynamic standing tolerance needed for increased I in self care tasks and functional transfers. Pt was able to tolerate aprox 5 minutes before sitting due to fatigue. Pt then completed minor self feeding task that consisted of making a glass of tea. Pt was provided with the water and he was then able to open the tea bags and anything extra being added to his cup. He managed the spoon while mixing with supervision. Pt was left sitting upright in the recliner with call ligh tin hand, tray table in place, and phone in reach. Continue with rec D/C plan to SNF. ALESSIA Jerez
--- NOTE | 2019-11-07 10:34 | NUR ---
PHYSICAL THERAPY Patient seen this am 1:1 for therapy visit and was sitting up in bedside chair upon therapist arrival. Patient is now in Isolation precautions secondary to MRSA of R foot, Heel area and identified by name / . Patient reports chronic B knee pain / stiffness and transfers sit to stand from low chair surface, MIN/CGA, demonstrating very slow initial rise. Patient needed a few seconds static stand to stretch his legs and ambulated with use of wh walker, 40'x 1, CGA, demonstrating antalgic gait pattern wiht slow zay. Patient returned to bedside chair with mild fatigue and following brief rest break was able to complete B LE therex. Patient performed AROM ex, all planes, x 20 reps each to increase LE strength without c/o and remained in chair with call light, tray table and telephone. Will continue per POC as tolerated, total treatment time 23 minutes. Abdullahi Orta, PAID SEARCH ANALYST
--- NOTE | 2019-11-07 10:37 | NUR ---
TRUSS MAKER spoke with the patient about his PRECERT status. TRUSS MAKER explained that the PRECERT has been denied and a Peer to Peer is being done. Patient understood. Patient stated wanted to get closer to [place]. TRUSS MAKER explained that if this Peer to Peer is denied. The insurance will deny another facility as well. Patient understood. Will await decision from Peer to Peer. -SHANKAR Love
[2019-11-07 12:00] VITALS: BP 123/52
--- NOTE | 2019-11-07 12:30 | NUR ---
SHANKAR was notified by RN Hospitalist Coordinator Shaunna that the patients SNF has been denined. SOFT TOP INSTALLER asked Sara in [employer] if the patient would qaulify for Medicaid. Sara stated she would speak with the patient. SOFT TOP INSTALLER will speak with the patient about HHC choices. -SHANKAR Love
--- NOTE | 2019-11-07 12:44 | NUR ---
INFRASTRUCTURE ARCHITECT spoke to the patient about Peer to Peer being denied. Patient stated that "going home is not an option". Patient stated that he wants all of his medical records. INFRASTRUCTURE ARCHITECT explained he could request them from the Medical Records department. Patient stated that he wants to go to SNF and self pay. INFRASTRUCTURE ARCHITECT explained cost would be anywhere from $200-$270/daily. INFRASTRUCTURE ARCHITECT explained to the patient that INFRASTRUCTURE ARCHITECT would look into self pay at [facility]. IN[facility]RASTRU[facility]URE ARCHITECT [facility] stated she would speak with her admins to see if they would be able to bring the patient pending medicaid applicaiton. Will await to hear back from Suzette. -SHANKAR Love
--- NOTE | 2019-11-07 14:27 | NUR ---
DRESSINGS CHANGED PER ORDER.
--- NOTE | 2019-11-07 14:40 | NUR ---
PERCOCET GIVEN PER ORDER FOR COMPLAINT OF GENERALIZED PAIN. WILL MONITOR EFFECTIVENESS
[2019-11-07] MEDS ORDERED: BUMETANIDE1 MG PO (15:05)
[2019-11-07] MEDS ORDERED: PERCOCET 10-321 EACH PO (15:05)
[2019-11-07] MEDS ORDERED: ALPRAZOLAM0.5 M3 PO (15:05)
[2019-11-07] MEDS ORDERED: VANCO 1.51.5 GM/500 IV (15:05)
--- NOTE | 2019-11-07 15:08 | NUR ---
SECURITY INSTALLATION TECHNICIAN spoke with [facility]. Patient is able to go to their facility under his PAS and will be able to start the Medicaid process once he is at their facility. SECURITY INSTALLATION TECHNICIAN informed Nicky of this. SECURITY INSTALLATION TECHNICIAN notified Shaunna-RN Hospitalist Coordinator. SECURITY INSTALLATION TECHNICIAN notified the patient of this. Patient will need a PICC or Midline placed before he can be discharged to the facility. JAREK Felix is aware. -SHANKAR Love
--- NOTE | 2019-11-07 15:24 | NUR ---
INTERLOCKING PAVEMENT INSTALLER faxed discharge orders to [facility]. -SHANKAR Love
[2019-11-07 16:00] VITALS: BP 171/63
--- NOTE | 2019-11-07 18:26 | NUR ---
Discharge instructions reviewed with patient/family, [facility]. Patient receptive and verbalizes understanding. VERY ANGRY ABOUT LATE DISCHARGE. STATES HE CANNOT REACH ANYONE TO HELP HIM AT THIS TIME, THOUGH . Follow-up care IS arranged at [facility] AND WRITTEN INSTRUCTIONS ARE GIVEN TO to patient AND TO [facility]
--- NOTE | 2019-11-07 18:54 | NUR ---
PATIENT WAS VERY ANGRY ABOUT DISCHARGE AFTER DINNER HOURS. WANTS TO BEDISCHARGED DURING DAY WHEN SUPERVISORS AND STAFF ARE PRESENT. SHIMON ESTES SPOKE TO PATIENT , THEY AGREED ON OVERNIGHT STAY FOR DISCHARGE IN AM TO [facility] IN AM IS BEST FOR PATIENT CARE AND SAFETY. THU RICE RN
[2019-11-07 20:00] VITALS: BP 118/48
[2019-11-08] VITALS: BP 118/42
--- NOTE | 2019-11-08 01:36 | NUR ---
24 HR chart check completed.
--- NOTE | 2019-11-08 02:45 | NUR ---
PATIENT MEDICATED WITH PERCOCET PER PRN ORDER FOR C/O GENERALIZED ALL OVER PAIN. RATED PAIN A 8. SEE EMAR. REINFORCED USE OF CALL LIGHT
[2019-11-08 06:22] LABS: BASO % 0.7 % (0.0-1.0); EOS # 0.1 10*3/uL (0.0-0.4); EOS % 2.2 % (1.0-4.0); HEMATOCRIT 27.6 % (42.0-52.0); HEMOGLOBIN 8.3 g/dl (14.0-18.0); LYMPH # 0.9 10*3/uL (1.3-4.4); LYMPH % 17.4 % (27.0-41.0); MEAN CELL VOLUME 91.7 fl (80.0-94.0); MEAN CORPUSCULAR HGB 27.6 pg (27.0-31.0); MEAN CORPUSCULAR HGB CONC 30.1 g/dl (33.0-37.0); MEAN PLATELET VOLUME 10.5 fl (9.6-12.3); MONO # 0.5 10*3/uL (0.1-1.0); MONO % 9.3 % (3.0-9.0); NEUT # 3.8 10*3/uL (2.3-7.9); NEUT % 70.2 % (47.0-73.0); PLATELET COUNT AUTOMATED 220 10*3/uL (130-400); RED BLOOD COUNT 3.01 10*6/uL (4.50-5.90); RED CELL DISTRI WIDTH 15.9 % (0-14.5); WHITE BLOOD COUNT 5.4 10*3/uL (4.8-10.8)
[2019-11-08 06:52] LABS: BUN 28 mg/dl (7-24); CHLORIDE 112 mmol/L (98-107); CREATININE 1.25 mg/dL (0.70-1.30); POTASSIUM 5.2 mmol/L (3.5-5.1); SODIUM 142 mmol/L (136-145)
--- NOTE | 2019-11-08 07:56 | NUR ---
OCCUPATIONAL THERAPY CO-SIGN I approve of the Occupational Therapy notes written above. Juany Griffith, OTR/L
[2019-11-08 08:00] VITALS: BP 143/56
--- NOTE | 2019-11-08 08:00 | NUR ---
TOOK OVER CARE OF PT. PT RESTING IN RECLINER CHAIR. NO S/S OF DISTRESS NOTED AT THIS TIME. ALL NEEDS ARE MET. SAFETY MEASURES ARE IN PLACE. CALL LIGHT IN REACH.
--- NOTE | 2019-11-08 08:28 | NUR ---
CAKE KNOCKER spoke with JAREK Saleh. CAKE KNOCKER spoke with [facility] they are able to transport the patient at 9:30am today. CAKE KNOCKER notified JAREK Saleh. CAKE KNOCKER reached out to patients brother Perez. Perez's answered. She is aware of the transport time and that the patient is discharged. CAKE KNOCKER faxed discharge orders and scripts yesterday afternoon to [facility]. She is aware the patient is going to be coming today at 9:30am. -SHANKAR Love
--- NOTE | 2019-11-08 09:36 | NUR ---
PT GIVEN PERCOCET 5-325 MG 2 TABS AT THIS TIME FOR C/O GENERALIZED PAIN. WILL NOTIFY SNF THAT THIS MEDICATION HAS BEEN GIVEN.
--- NOTE | 2019-11-08 10:00 | NUR ---
Discharge instructions reviewed with patient/family. Patient receptive and verbalizes understanding. Follow-up care arranged. Written instructions given to patient/family. ERIKA SABA
--- NOTE | 2019-11-08 10:36 | NUR ---
REPORT CALLED TO [facility] NURSE AT THIS TIME.
--- NOTE | 2019-11-11 07:36 | NUR ---
PHYSICAL THERAPY CO-SIGN I approve of the Physical Therapy notes written above. Lacey Cochran PT
== END 2019-11-08 10:36 | disposition other institution (70) | DRG 682 ==
LOC: ED 21:01 → 5E 11-02 00:39 → EDHOLD 11-02 00:39 → 4E 11-02 00:39 → 5E 11-02 01:07 → 4E 11-07 15:17
PROVIDERS: Family Medicine; Internal Medicine; Nurse Practitioner Family; Student in an Organized Health Care Education/Training Program; ADMIT Emergency Medicine
PROC: 05H933Z Insertion of Infusion Device into Right Brachial Vein, Percutaneous Approach (ICD-10-PCS; principal; 2019-11-07)
DX: N17.0 Acute kidney failure with tubular necrosis (principal); E43 Unspecified severe protein-calorie malnutrition; M62.82 Rhabdomyolysis; E86.0 Dehydration; R82.71 Bacteriuria; I70.209 Unspecified atherosclerosis of native arteries of extremities, unspecified extremity; Z66 Do not resuscitate; Z51.5 Encounter for palliative care; R26.2 Difficulty in walking, not elsewhere classified; E11.65 Type 2 diabetes mellitus with hyperglycemia; D72.810 Lymphocytopenia; E11.51 Type 2 diabetes mellitus with diabetic peripheral angiopathy without gangrene; D64.9 Anemia, unspecified; I25.10 Atherosclerotic heart disease of native coronary artery without angina pectoris; E78.5 Hyperlipidemia, unspecified; I10 Essential (primary) hypertension; K21.9 Gastro-esophageal reflux disease without esophagitis; F41.9 Anxiety disorder, unspecified; F32.9 Major depressive disorder, single episode, unspecified; E55.9 Vitamin D deficiency, unspecified; L89.619 Pressure ulcer of right heel, unspecified stage; B95.62 Methicillin resistant Staphylococcus aureus infection as the cause of diseases classified elsewhere; Z79.899 Other long term (current) drug therapy; Z95.1 Presence of aortocoronary bypass graft; Z87.891 Personal history of nicotine dependence; I25.2 Old myocardial infarction; Z82.49 Family history of ischemic heart disease and other diseases of the circulatory system; Z79.4 Long term (current) use of insulin; Z68.23 Body mass index [BMI] 23.0-23.9, adult